=== PATIENT | female | born 1970 | race American Indian/Alaskan Native ===

== ENCOUNTER 2016-06-03 07:16 | Day surgery (SDC) | payer OTHER ==
[2016-06-03 07:42] VITALS: BMI 23.3
[2016-06-03 08:16] VITALS: O2SAT 100
[2016-06-03] MEDS ORDERED: Lidocaine Hydrochloride 5 ML INJ ONE (08:52)
[2016-06-03] MEDS ORDERED: Propofol 10 mg/ml Inj (20 ML) ONE ×2 (08:52→09:02)
--- NOTE | 2016-06-03 08:56 | CP.SDSHP ---
Same Day Surgery H & P - History Proposed Procedure: COLONSCOPY Pre-Op Diagnosis: COLON CA. - Previous Medical/Surgical History Cardiac: Hypertension Pulmonary: Asthma Neuro: Backaches Misc: Other Pain: 4.Moderate Pain Previous Surgical History: PARTIAL COLECTOMY / HAS COLOSTOMY - Allergies Allergies: Allergies No Known Allergies Allergy (Verified 11/21/14 07:47) - Physical Exam General Appearance: N Vital Signs: Vital Signs 06/03/16 07:47 Temperature 97.7 F Pulse Rate 68 Respiratory 19 Rate Blood Pressure 130/86 O2 Sat by Pulse 100 Oximetry Mental Status: Alert & Oriented x3 Neuro: WNL Heart: Other Lungs: Other GI: Other - {Optional Preform as Required} Breast: WNL Abdomen: Other Rectal: Other Integument: WNL : WNL Ortho: Other ENT: WNL - Impression Pt. Evaluated Today:Candidate for Anesthesia & Procedure: Yes - Date & Time Time: 08:56 Short Stay Discharge - Short Stay Discharge Admitting Diagnosis/Reason for Visit: COLON POLYP Disposition: HOME/ ROUTINE
[2016-06-03] MEDS ORDERED: Belladonna-Phenobarbital PO STA (09:01)
[2016-06-03 13:26] VITALS: TEMP 97.1
[2016-06-03 13:34] VITALS: BP 136/86; PULSE 61; RESP 15
== END 2016-06-03 10:45 | disposition home or self-care (01) ==
LOC: C.ENDO 07:16
PROVIDERS: ATTEND Specialist
DX: K63.89 Other specified diseases of intestine (principal); K58.9 Irritable bowel syndrome, unspecified; Z85.038 Personal history of other malignant neoplasm of large intestine; Z86.010 Personal history of colon polyps; Z90.49 Acquired absence of other specified parts of digestive tract; Z93.3 Colostomy status
CPT/HCPCS: 44389; 84703; 88305; J2704

== ENCOUNTER 2016-08-12 06:14 | Day surgery (SDC) | payer OTHER ==
[2016-08-12 06:42] VITALS: BMI 24.0
[2016-08-12] MEDS ORDERED: Albuterol HFA 90 mcg/actuation (8 g) ONE (07:40)
[2016-08-12] MEDS ORDERED: Propofol 10 mg/ml Inj (20 ML) ONE (07:45)
[2016-08-12] MEDS ORDERED: Lactated Ringer's 500 ML IV ONE ×2 (08:10)
--- NOTE | 2016-08-12 08:11 | CP.SDSHP ---
Same Day Surgery H & P - History Proposed Procedure: EGD Pre-Op Diagnosis: SEE NOTES - Previous Medical/Surgical History Cardiac: Hypertension Pulmonary: Asthma Neuro: Backaches Misc: Other - Allergies Allergies: Allergies No Known Allergies Allergy (Verified 11/21/14 07:47) - Physical Exam General Appearance: N Vital Signs: Vital Signs 08/12/16 06:42 Temperature 97.8 F Pulse Rate 70 Respiratory 19 Rate Blood Pressure 138/80 O2 Sat by Pulse 99 Oximetry Neuro: WNL Heart: Other Lungs: Other GI: Other - {Optional Preform as Required} Breast: WNL Abdomen: Other Rectal: Other Integument: WNL : WNL Ortho: Other ENT: WNL - Impression Pt. Evaluated Today:Candidate for Anesthesia & Procedure: Yes - Date & Time Time: 08:11 Short Stay Discharge - Short Stay Discharge Admitting Diagnosis/Reason for Visit: DYSPEPSIA Disposition: HOME/ ROUTINE
[2016-08-12] MEDS ORDERED: Belladonna-Phenobarbital PO STA (08:12)
[2016-08-12] MEDS ORDERED: Pantoprazole 40 mg EC Tab PO STA (08:13)
[2016-08-12 08:33] VITALS: TEMP 98
[2016-08-12 09:39] VITALS: BP 145/79; PULSE 75; RESP 12; O2SAT 99
== END 2016-08-12 09:38 | disposition home or self-care (01) ==
LOC: C.ENDO 06:14
PROVIDERS: ATTEND Specialist
DX: K25.9 Gastric ulcer, unspecified as acute or chronic, without hemorrhage or perforation (principal); K30 Functional dyspepsia; K29.00 Acute gastritis without bleeding; K29.80 Duodenitis without bleeding; I10 Essential (primary) hypertension; J45.909 Unspecified asthma, uncomplicated
CPT/HCPCS: 43239; 84703; 88305; 88342; J2001; J2704; J7120

== ENCOUNTER 2017-01-31 20:23 | Inpatient (IN) | payer OTHER ==
[2017-01-31 20:24] VITALS: BMI 24.0
[2017-01-31 20:58] LABS: BASO # 0.1 K/uL (0.0-0.2); EOS # 0.1 K/uL (0.0-0.7); LYMPH # 2.1 K/uL (1.0-4.3); MEAN CORPUSCULAR HEMOGLOBIN 16.8 pg (27.0-31.0); MONO # 0.5 K/uL (0.0-0.8)
[2017-01-31 21:13] LABS: ALKALINE PHOSPHATASE 92 U/L (38-126); ALT/SGPT 38 U/L (9-52); AST/SGOT 18 U/L (14-36); BILIRUBIN,TOTAL 0.4 mg/dL (0.2-1.3); BLOOD UREA NITROGEN 9 mg/dL (7-17); CALCIUM 8.1 mg/dl (8.6-10.4); CARBON DIOXIDE 27 mmol/L (22-30); CHLORIDE 105 mmol/L (98-107); GFR AFRICAN-AMERICAN > 60; GLUCOSE,RANDOM 91 mg/dL (65-105); POTASSIUM 3.6 mmol/L (3.6-5.2); SODIUM 138 mmol/L (132-148); TOTAL PROTEIN 8.9 g/dL (6.3-8.3)
--- NOTE | 2017-01-31 21:13 | C.PDOC ---
History Of Present Illness 46 year old female is referred to the ED by her PMD Dr. Cornejo for evaluation of abnormal lab results, patient is also c/o a headache. Patient was supposed to come in yesterday, she reports taking Ibuprofen 1600 mg once last night and has not taking anything today. Patient denies fever, chills, nausea, vomit, diarrhea, abdominal pain, back pain, blurry vision, numbness, weakness. heavy menstrual periods with many large clots and "always bleeding/spotting all month." Time Seen by Provider: 01/31/17 20:41 Chief Complaint (Nursing): Headache History Per: Patient History/Exam Limitations: no limitations Onset/Duration Of Symptoms: Hrs Current Symptoms Are (Timing): Still Present Quality: "Pain" Preceeding Symptoms: None Recent travel outside of the [place]: No Additional History Per: Patient Past Medical History Reviewed: Historical Data, Nursing Documentation, Vital Signs Vital Signs: Last Vital Signs Temp 98.1 F 01/31/17 23:51 Pulse 60 01/31/17 23:51 Resp 16 01/31/17 23:51 BP 173/88 H 01/31/17 23:51 Pulse Ox 100 01/31/17 23:51 - Medical History PMH: Anemia, Anxiety, Asthma, Colonic Polyps, Depression, HTN, Hypercholesterolemia, Migraine Denies: Atrial Fibrillation, Bronchitis, Cardia Arrhythmia, CHF, COPD, Emphysema, Mitral Valve Prolapse, Peripheral Edema, Pneumonia, Pulmonary Embolism, Chronic Kidney Disease, Sleep Apnea Other PMH: fibroid uterus Surgical History: Endoscopy - [facility] Procedures BYPASS SIGMOID COLON TO CUTANEOUS, OPEN APPROACH (01/15/15) EXCISION OF RECTUM, ENDO, DIAGN (11/23/14) EXCISION OF RECTUM, VIA NATURAL OR ARTIFICIAL OPENING (11/23/14) EXCISION OF SIGMOID COLON, OPEN APPROACH (01/15/15) RESECTION OF APPENDIX, OPEN APPROACH (01/15/15) RESECTION OF RECTUM, OPEN APPROACH (01/15/15) Family History: States: Unknown Family Hx - Social History Hx Alcohol Use: No Hx Substance Use: No Review Of Systems Constitutional: Negative for: Fever, Chills Cardiovascular: Negative for: Chest Pain, Palpitations Respiratory: Negative for: Cough, Shortness of Breath Gastrointestinal: Negative for: Nausea, Vomiting, Abdominal Pain Genitourinary: Positive for: Other (DUB presumed related to uterine fibroids) Musculoskeletal: Negative for: Back Pain Skin: Negative for: Rash Neurological: Positive for: Headache. Negative for: Weakness, Numbness Physical Exam - Physical Exam Appears: Non-toxic, No Acute Distress, Other (Black female) Skin: Warm, Dry, Pale Head: Atraumatic, Normacephalic Nose: No Discharge, No Deformity Oral Mucosa: Moist Neck: Normal ROM, Supple Chest: Symmetrical Cardiovascular: Rhythm Regular, No Murmur Respiratory: Normal Breath Sounds, No Rales, No Rhonchi, No Wheezing Gastrointestinal/Abdominal: Soft, No Tenderness, No Distention, No Rebound Extremity: Normal ROM, No Pedal Edema, No Calf Tenderness, No Deformity, No Swelling Neurological/Psych: Oriented x3, Normal Speech, Normal Cognition Gait: Steady ED Course And Treatment - Laboratory Results Result Diagrams: 01/31/17 20:55 01/31/17 20:55 Lab Interpretation: Abnormal (significant anemia from hgb 9.4) Urine POC: Negative ECG: Interpreted By Me, Viewed By Me ECG Rhythm: Sinus Rhythm ECG Interpretation: Normal Rate From EC O2 Sat by Pulse Oximetry: 100 (On RA) Pulse Ox Interpretation: Normal - Radiology CXR: Interpreted by Me CXR Interpretation: Yes: No Acute Disease Progress Note: tylenol, Tramadol PO, protonix 40 IV. risk/benefits of blood tx overnight explained and written consent acquired Reevaluation Time: 22:44 Reassessment Condition: Improved - Physician Consult Information Outcome Of Conversation: 2199, 2229: calls to Dr. Hansen who referred pt to ED, corroborates sent pt to ED for outpatient labs sig for anemia. Requests blood tx overnight, but pt declines at this time. Plans to transfuse tomorrow after d /w pt and plan scope on day 2/Thursday. 2229: d/w Dr. Alaniz- had admitted pt to admit and transfusions overnight Medical Decision Making Medical Decision Making: Plan: * EKG * CXR * Blood work * Tylenol 975 mg PO symptomatic anemia, probably GI loss taking Motrin 1600 mg for headache pain- educated to never take more than 600 mg Q6H non-compliant with iron supplements due to constipation, though seems pt's constipation more have been related to post-op chronic narcotics use than iron. Blood Transfusion for syptomatic anemia ordered, but pt prefers to defer and d/ w PMD/Dr. Hansen and defers blood tx for now. EDI ARCHITECT: DUB and uterine fibroids, pt had requested hysterectomy but deferred for ? reasons. Consider re-eval with EDI ARCHITECT Dr Hansen to eval in AM. Disposition Doctor Will See Patient In The: Hospital Counseled Patient/Family Regarding: Studies Performed, Diagnosis - Disposition Disposition: HOSPITALIZED Disposition Time: 22:46 Condition: GOOD - Clinical Impression Clinical Impression: Anemia, Colostomy in place, DUB (dysfunctional uterine bleeding) - Scribe Statement The provider has reviewed the documentation as recorded by the Scribe Claudy Ledbetter All medical record entries made by the Scribe were at my direction and personally dictated by me. I have reviewed the chart and agree that the record accurately reflects my personal performance of the history, physical exam, medical decision making, and the department course for this patient. I have also personally directed, reviewed, and agree with the discharge instructions and disposition.
[2017-01-31 21:15] LABS: RBC URINE 9 /hpf (0-3); URINE BACTERIA OCC (<OCC); URINE BILIRUBIN NEGATIVE (NEGATIVE); URINE BLOOD NEGATIVE (NEGATIVE); URINE COLOR Yellow (YELLOW); URINE GLUCOSE (UA) NORMAL (Normal); URINE KETONE NEGATIVE (NEGATIVE); URINE LEUKOCYTE ESTERASE 3+ Leu/uL (Negative); URINE PROTEIN 1+ mg/dL (NEGATIVE); URINE UROBILINOGEN NORMAL mg/dL (0.2-1.0); WBC URINE 19 /hpf (0-5)
[2017-01-31 21:19] LABS: BASO % 1.2 % (0.0-2.0); EOS % 0.9 % (0.0-4.0); HEMATOCRIT 23.7 % (34.0-47.0); LYMPH % 34.5 % (20.0-40.0); MEAN CELL VOLUME 58.9 fL (81.0-99.0); MEAN CORPUSCULAR HGB CONC 28.5 g/dL (33.0-37.0); MEAN PLATELET VOLUME 8.9 fL (7.2-11.7); MONO % 7.6 % (0.0-10.0); NRBC % 0.1 % (0.0-2.0); RED CELL DISTRIBUTION WIDTH 21.9 % (11.5-14.5); WHITE BLOOD COUNT 6.1 K/uL (4.8-10.8)
[2017-01-31 21:27] LABS: ALB/GLOB RATIO 0.9 (1.0-2.1)
--- NOTE | 2017-02-01 08:15 | RAD ---
Chest x-ray single frontal view History: Shortness of breath. Comparison: 11/23/2014 Findings: No focal infiltrate or effusion. Heart size within normal limits. Osseous structures are preserved. Impression: No focal infiltrate or effusion.
[2017-02-01 08:56] LABS: HEMATOCRIT 23.1 % (34.0-47.0); MEAN CELL VOLUME 59.7 fL (81.0-99.0); MEAN CORPUSCULAR HEMOGLOBIN 17.2 pg (27.0-31.0); MEAN CORPUSCULAR HGB CONC 28.8 g/dL (33.0-37.0); MEAN PLATELET VOLUME 9.3 fL (7.2-11.7); RED CELL DISTRIBUTION WIDTH 22.2 % (11.5-14.5); WHITE BLOOD COUNT 6.7 K/uL (4.8-10.8)
[2017-02-01] MEDS: Pantoprazole 40 mg EC Tab PO SCH (09:02)
[2017-02-01] MEDS: Albuterol HFA 90 mcg/actuation (8 g) INH SCH (11:00)
[2017-02-01] MEDS: Ferric Sodium Gluconat Complex 125 MG in Sodium Chloride 0.9% 100 ML IVPB SCH (12:27)
[2017-02-01] MEDS ORDERED: Ferric Sodium Gluconat Complex 62.5 mg/5 ml Vial IVPB SCH (13:00)
--- NOTE | 2017-02-02 07:35 | CON ---
LOCATION: 365, bed ACassidy Allrde was called for GI consultation last night by the ER physician as well as the admitting medical team. The entire case was discussed with the ER physician on 01/31/2017. The patient is seen today for GI consultation on 02/01/2017. HISTORY OF PRESENT ILLNESS: This is a 46 years old female, who was found to have very low hemoglobin and hematocrit level as outpatient done by myself, subsequently and immediately the patient was contacted to go to the emergency room due to her severe anemia as well as her current episode of headache and the abdominal pain, had been taken the ibuprofen and had high dose of ibuprofen everyday almost due to her headache, but no reported active bleeding, no nausea or vomiting at the time of the admission, but recent change of bowel movement habit. The patient denies any chest pain, palpitation or significant shortness of breath. PAST MEDICAL HISTORY: Including but not limited to, 1. Bronchial asthma. 2. Hypertension. 3. Hyperlipidemia. 4. Depression. 5. Peptic ulcer disease. 6. Severe anxiety syndrome. 7. Colon polyps. 8. Colon CA, treated surgically before. 9. Upper and lower endoscopy about 2 years ago. FAMILY HISTORY: Unrelated to specific GI disorder. CURRENT MEDICATIONS: Medication lists were reviewed. SOCIAL HISTORY: Denied any recent history of cigarette smoking or alcohol intake. ALLERGY TO MEDICATION: None as per the patient's statement. LABORATORY DATA: After being admitted to the hospital, initial blood workup showed hemoglobin of 6.8 with hematocrit 27.3 with low indices, highly suggestive of hypochromic macrocytic anemia with platelet count of 553 with low calcium of 8.1 and abnormal urinalysis. The rest of the liver function test appeared to be normal. PHYSICAL EXAMINATION: GENERAL: A 46 years old female. Awake, alert, oriented with a complaint of headache. VITAL SIGNS: Afebrile with pulse of 62, respiratory rate 20 to 22, blood pressure of 140/78. HEENT: Showed pale dry oral mucous membrane. Nonicteric sclerae. LYMPH NODES: No lymphadenitis or lymphadenopathy. LUNGS: Few scattered crepitation with decreased air entry at bases. HEART: Positive S1 and S2. ABDOMEN: Soft. Bowel sounds are present. No mass or organomegaly. No rebound tenderness or guarding. EXTREMITIES: Without significant clubbing, cyanosis or edema. RECTAL: The patient refused. NEUROLOGIC: No reported new neurological deficits, sensory or motor. It has to be mentioned that the patient's colostomy tube is in place without reported evidence of active bleeding, the patient had been on iron supplement on and off before. IMPRESSION: 1. Severe anemia, most likely secondary to chronic disease. Keeping in mind the patient on history of rectal cancer with colon polyps and status post cholecystectomy. 2. To rule out upper versus lower gastrointestinal blood loss. 3. Reported history of but not limited to depression, bronchial asthma, hypertension with hyperlipidemia. 4. Migraine headache by history. SUGGESTION: 1. Agree with your plan. 2. Blood transfusion, the patient refused for now. 3. Hematology/Oncology consult. The patient may need iron infusion. 4. Sectional abdominal and pelvic CAT scan. 5. Cancer markers including CEA and CA125. 6. The patient may need endoscopic evaluation of the GI tract when she is more stable clinically and after correcting anemia. 7. Further recommendation to follow. Wayne Moreau MD
--- NOTE | 2017-02-02 09:24 | CP.PCM.CON ---
Past Patient History - Past Medical History & Family History Past Medical History?: Yes - Past Social History Smoking Status: Never Smoked - CARDIAC Hx Atrial Fibrillation: No Hx Cardia Arrhythmia: No Hx Congestive Heart Failure: No Hx Hypercholesterolemia: Yes Hx Hypertension: Yes Hx Mitral Valve Prolapse: No Hx Peripheral Edema: No - PULMONARY Hx Asthma: Yes Hx Bronchitis: No Hx Chronic Obstructive Pulmonary Disease (COPD): No Hx Emphysema: No Hx Pneumonia: No Hx Pulmonary Embolism: No Hx Sleep Apnea: No - NEUROLOGICAL Hx Migraine: Yes - HEENT Hx HEENT Problems: No Other/Comment: wears reading glass - RENAL Hx Chronic Kidney Disease: No - ENDOCRINE/METABOLIC Hx Endocrine Disorders: No - HEMATOLOGICAL/ONCOLOGICAL Hx Anemia: Yes Hx Blood Transfusions: No - INTEGUMENTARY Hx Dermatological Problems: No - MUSCULOSKELETAL/RHEUMATOLOGICAL Hx Musculoskeletal Disorders: Yes Hx Falls: No Other/Comment: intermittent muscle pain - GASTROINTESTINAL Hx Gastrointestinal Disorders: Yes Hx Colostomy: Yes (2014) Hx Gastroesophageal Reflux: Yes Other/Comment: Hx colon CA - PSYCHIATRIC Hx Anxiety: Yes Hx Depression: Yes Hx Substance Use: No - SURGICAL HISTORY Hx Surgeries: Yes Other/Comment: colon resection - ANESTHESIA Hx Anesthesia: Yes Hx Anesthesia Reactions: No Hx Malignant Hyperthermia: No Meds Allergies/Adverse Reactions: Allergies Allergy/AdvReac Type Severity Reaction Status Date / Time No Known Allergies Allergy Verified 11/21/14 07:47 - Medications Medications: Current Medications Acetaminophen (Tylenol 325mg Tab) 650 mg PO Q6 PRN PRN Reason: MILD pain 1-3 /fever Last Admin: 02/01/17 21:23 Dose: 650 mg Albuterol (Ventolin Hfa 90 Mcg/Actuation (8 G)) 1 puff INH DAILY [facility] Last Admin: 02/01/17 11:00 Dose: 1 puff Alprazolam (Xanax) 0.5 mg PO DAILY PRN PRN Reason: Anxiety Amlodipine Besylate (Norvasc) 5 mg PO DAILY [facility] Last Admin: 02/01/17 09:04 Dose: 5 mg Ferric Sodium Gluconate Complex 125 mg/ Sodium Chloride 110 mls @ 110 mls/hr IVPB DAILY [facility] Stop: 02/09/17 13:01 Last Admin: 02/01/17 12:27 Dose: 110 mls/hr Metoclopramide HCl (Reglan) 5 mg PO Q6H PRN PRN Reason: Nausea/Vomiting Pantoprazole Sodium (Protonix Ec Tab) 40 mg PO DAILY [facility] Last Admin: 02/01/17 09:02 Dose: 40 mg Pneumococcal Polyvalent Vaccine (Pneumovax 23 Vaccine) 0.5 ml IM .ONCE ONE Stop: 02/03/17 10:01 Sucralfate (Carafate Tab) 1 gm PO DAILY [facility] Last Admin: 02/01/17 09:02 Dose: 1 gm Sumatriptan Succinate (Imitrex Tab) 100 mg PO DAILY [facility] Last Admin: 02/01/17 09:02 Dose: 100 mg Tramadol HCl (Ultram) 50 mg PO DAILY PRN PRN Reason: Pain, moderate (4-7) Last Admin: 02/01/17 13:12 Dose: 50 mg Results - Vital Signs Recent Vital Signs: Last Vital Signs Temp 98.1 F 02/02/17 09:04 Pulse 64 02/02/17 09:04 Resp 20 02/02/17 09:04 BP 135/67 02/02/17 09:04 Pulse Ox 100 02/02/17 09:04 - Labs Result Diagrams: 02/01/17 08:47 01/31/17 20:55
[2017-02-02] MEDS: Pantoprazole 40 mg EC Tab PO SCH (10:02)
[2017-02-02] MEDS: Ferric Sodium Gluconat Complex 125 MG in Sodium Chloride 0.9% 100 ML IVPB SCH (10:02)
[2017-02-02] MEDS: Albuterol HFA 90 mcg/actuation (8 g) INH SCH (10:10)
--- NOTE | 2017-02-02 10:48 | CP.PCM.PN ---
Subjective - Date & Time of Evaluation Date of Evaluation: 02/02/17 Time of Evaluation: 10:00 - Subjective Subjective: PGY-[address] Baron Patient seen and examined at bedside. Patient continue to complain of headache and dizziness. Her abdominal pain has resolved. Patient was educated on benefits and risks of blood transfusion but patient still refused due to fear of "infections". Patient denies fever, chills, shortness of breath, chest pain, diarrhea, or urinary symptoms. Objective - Vital Signs/Intake and Output Vital Signs (last 24 hours): Temp Pulse Resp BP Pulse Ox 98.1 F 64 20 135/67 100 02/02/17 09:04 02/02/17 09:04 02/02/17 09:04 02/02/17 09:04 02/02/17 09:04 - Medications Medications: Current Medications Acetaminophen (Tylenol 325mg Tab) 650 mg PO Q6 PRN PRN Reason: MILD pain 1-3 /fever Last Admin: 02/01/17 21:23 Dose: 650 mg Albuterol (Ventolin Hfa 90 Mcg/Actuation (8 G)) 1 puff INH DAILY [facility] Last Admin: 02/02/17 10:10 Dose: 1 puff Alprazolam (Xanax) 0.5 mg PO DAILY PRN PRN Reason: Anxiety Amlodipine Besylate (Norvasc) 5 mg PO DAILY [facility] Last Admin: 02/02/17 10:02 Dose: 5 mg Ferric Sodium Gluconate Complex 125 mg/ Sodium Chloride 110 mls @ 110 mls/hr IVPB DAILY [facility] Stop: 02/09/17 13:01 Last Admin: 02/02/17 10:02 Dose: 110 mls/hr Metoclopramide HCl (Reglan) 5 mg PO Q6H PRN PRN Reason: Nausea/Vomiting Pantoprazole Sodium (Protonix Ec Tab) 40 mg PO DAILY [facility] Last Admin: 02/02/17 10:02 Dose: 40 mg Pneumococcal Polyvalent Vaccine (Pneumovax 23 Vaccine) 0.5 ml IM .ONCE ONE Stop: 02/03/17 10:01 Sucralfate (Carafate Tab) 1 gm PO DAILY [facility] Last Admin: 02/02/17 10:08 Dose: 1 gm Sumatriptan Succinate (Imitrex Tab) 100 mg PO DAILY [facility] Last Admin: 02/02/17 09:56 Dose: 100 mg Tramadol HCl (Ultram) 50 mg PO DAILY PRN PRN Reason: Pain, moderate (4-7) Last Admin: 02/02/17 10:06 Dose: 50 mg - Labs Labs: 02/01/17 08:47 01/31/17 20:55 PT 11.9 SECONDS (9.7-12.2) 01/31/17 20:55 INR 1.0 01/31/17 20:55 APTT 32 SECONDS (21-34) 01/31/17 20:55 - Constitutional Appears: Non-toxic, No Acute Distress - Head Exam Head Exam: ATRAUMATIC, NORMOCEPHALIC - Eye Exam Eye Exam: Normal appearance - ENT Exam ENT Exam: Mucous Membranes Moist - Neck Exam Neck Exam: Normal Inspection - Respiratory Exam Respiratory Exam: Clear to Ausculation Bilateral, NORMAL BREATHING PATTERN. absent: Respiratory Distress - Cardiovascular Exam Cardiovascular Exam: REGULAR RHYTHM, +S1, +S2 - GI/Abdominal Exam GI & Abdominal Exam: Soft, Normal Bowel Sounds. absent: Tenderness Additional comments: Colostomy bag in place, clean, no leaks appreciated - Extremities Exam Extremities Exam: Normal Capillary Refill, Normal Inspection. absent: Joint Swelling, Pedal Edema - Neurological Exam Neurological Exam: Alert, Awake, Oriented x3 - Psychiatric Exam Psychiatric exam: Normal Affect, Normal Mood - Skin Skin Exam: Dry, Warm Assessment and Plan - Assessment and Plan (Free Text) Assessment: Anemia -Improving, Hgb 7.3 today -Patient still refuses blood transfusion due to fear of infections -Continue Ferrlecit -continue to monitor CBC -Follow GI recommendations: possible endoscopy when patient is stable -Follow Heme/Onc recommendations Headache -Likely secondary to anemia -Sumatriptan 100mg po -Tramadol 50mg po prn Asthma -Albuterol HFA Prophylactic measures -SCD -Protonix Management per Dr. Baron
--- NOTE | 2017-02-02 10:51 | HP ---
HISTORY OF PRESENT ILLNESS: A 46-year-old female admitted to the hospital with chief complaint of weakness, fatigue, tiredness and some discomfort. Patient has a history of CA of the colon. Patient came and advised admission. PHYSICAL EXAMINATION: GENERAL: Patient is awake, alert, oriented. VITAL SIGNS: Temperature 98, pulse . HEENT: Within normal limits. NECK: Supple. CHEST: Symmetrical. HEART: Regular. ABDOMEN: Soft. EXTREMITIES: No edema. IMPRESSION AND PLAN: anemia symptomatic at this point. The patient needs bedrest infusion of IV iron, GI evaluation. Daniel Baron MD
[2017-02-02] MEDS ORDERED: Peg-Electrolyte Oral Soln 4L (Golytely) PO ONE (14:00)
[2017-02-02 14:39] LABS: BASO # 0.1 K/uL (0.0-0.2); BASO % 1.3 % (0.0-2.0); EOS % 0.3 % (0.0-4.0); HEMATOCRIT 25.2 % (34.0-47.0); LYMPH # 1.7 K/uL (1.0-4.3); MEAN CELL VOLUME 59.2 fL (81.0-99.0); MEAN CORPUSCULAR HEMOGLOBIN 17.1 pg (27.0-31.0); MEAN CORPUSCULAR HGB CONC 28.9 g/dL (33.0-37.0); MEAN PLATELET VOLUME 9.4 fL (7.2-11.7); MONO # 0.5 K/uL (0.0-0.8); MONO % 6.4 % (0.0-10.0); NRBC % 0.1 % (0.0-2.0); RED CELL DISTRIBUTION WIDTH 21.6 % (11.5-14.5); WHITE BLOOD COUNT 7.2 K/uL (4.8-10.8)
[2017-02-02 15:02] LABS: BLOOD UREA NITROGEN 4 mg/dL (7-17); CALCIUM 8.6 mg/dl (8.6-10.4); CARBON DIOXIDE 30 mmol/L (22-30); CHLORIDE 102 mmol/L (98-107); GFR AFRICAN-AMERICAN > 60; GLUCOSE,RANDOM 84 mg/dL (65-105); POTASSIUM 3.7 mmol/L (3.6-5.2); SODIUM 139 mmol/L (132-148)
--- NOTE | 2017-02-02 15:31 | PN ---
DATE: LOCATION: 365, bed A. SUBJECTIVE: This is a 46 years old female seen early in rounds today without significant clinical changes or reported active bleeding but with generalized weakness and malaise with a complaint of mild dizziness and headache. It has to be mentioned again the patient has been refusing blood transfusion but agreed for iron IV supplement. This was discussed at length this morning with Dr. Baron. The entire chart is reviewed including but not limited to the most recent lab and radiology study results, current and the previous medication list, current and previous medical events. Most recent lab results showed hemoglobin again of 6.6 with hematocrit 23.1 with low indices highly suggestive of hypochromic microcytic anemia with thrombocytosis of 514. PHYSICAL EXAMINATION: GENERAL: A 46 years old female. VITAL SIGNS: Afebrile with pulse of 68, respiratory rate 20 to 22, and blood pressure 132/62. HEENT: Showed mildly pale, dry oral mucous membranes. Nonicteric sclerae. LUNGS: Few scattered crepitation, decreased air entry at bases. HEART: Positive S1 and S2. ABDOMEN: Soft, bowel sounds are present. Colostomy tube is in place without any reported active bleeding. EXTREMITIES: Without significant clubbing, cyanosis, or edema. NEUROLOGIC: No reported new neurological deficits, sensory or motor. IMPRESSION: 1. Known history of rectal cancer with status post colostomy. 2. Hypochromic microcytic anemia, to rule out recurrent cancer of the colon, to rule out gastrointestinal blood loss. 3. Severe anemia, most likely secondary to above. 4. Headache, most likely secondary to above. 5. Known history of bronchial asthma. SUGGESTION: 1. Agree with your plan. 2. Schedule the patient for followup colonoscopy at a.m. after adequate preparation. Wayne Moreau MD
[2017-02-02] MEDS ORDERED: Bisacodyl 5mg EC Tab PO ONE (17:00)
--- NOTE | 2017-02-02 23:57 | CP.PCM.CON ---
History of Present Illness - History of Present Illness History of Present Illness: 46 year old female with a history of colorectal cancer s/p resection in 2014 ( pT1 N0), chronic iron deficiency anemia secondary to menorrhagia, admitted with symptomatic anemia. The patient reports to feeling weak and tired. She had blood work done which showed a low hgb and was referred to the hospital. In the hospital her hgb was found to be 6.8. She was offered a transfusion but deferred this. She is currently receiving IV iron and notes to feeling better. Past medical history: colorectal cancer, menorrhagia, iron deficiency Past surgical history: APR Family history: Denies hematologic and oncologic problems Social history: Denies tobacco, alcohol, and illicit drug use. Allergies: NKA Review of systems: All remaining review of systems including HEENT, cardiovascular, respiratory, gastrointestinal, genitourinary, musculoskeletal, dermatologic, neurologic, and psychiatric are negative unless mentioned in the HPI. Past Patient History - Past Medical History & Family History Past Medical History?: Yes - Past Social History Smoking Status: Never Smoked - CARDIAC Hx Atrial Fibrillation: No Hx Cardia Arrhythmia: No Hx Congestive Heart Failure: No Hx Hypercholesterolemia: Yes Hx Hypertension: Yes Hx Mitral Valve Prolapse: No Hx Peripheral Edema: No - PULMONARY Hx Asthma: Yes Hx Bronchitis: No Hx Chronic Obstructive Pulmonary Disease (COPD): No Hx Emphysema: No Hx Pneumonia: No Hx Pulmonary Embolism: No Hx Sleep Apnea: No - NEUROLOGICAL Hx Migraine: Yes - HEENT Hx HEENT Problems: No Other/Comment: wears reading glass - RENAL Hx Chronic Kidney Disease: No - ENDOCRINE/METABOLIC Hx Endocrine Disorders: No - HEMATOLOGICAL/ONCOLOGICAL Hx Anemia: Yes Hx Blood Transfusions: No - INTEGUMENTARY Hx Dermatological Problems: No - MUSCULOSKELETAL/RHEUMATOLOGICAL Hx Musculoskeletal Disorders: Yes Hx Falls: No Other/Comment: intermittent muscle pain - GASTROINTESTINAL Hx Gastrointestinal Disorders: Yes Hx Colostomy: Yes (2014) Hx Gastroesophageal Reflux: Yes Other/Comment: Hx colon CA - PSYCHIATRIC Hx Anxiety: Yes Hx Depression: Yes Hx Substance Use: No - SURGICAL HISTORY Hx Surgeries: Yes Other/Comment: colon resection - ANESTHESIA Hx Anesthesia: Yes Hx Anesthesia Reactions: No Hx Malignant Hyperthermia: No Meds Allergies/Adverse Reactions: Allergies Allergy/AdvReac Type Severity Reaction Status Date / Time No Known Allergies Allergy Verified 11/21/14 07:47 - Medications Medications: Current Medications Acetaminophen (Tylenol 325mg Tab) 650 mg PO Q6 PRN PRN Reason: MILD pain 1-3 /fever Last Admin: 02/01/17 21:23 Dose: 650 mg Albuterol (Ventolin Hfa 90 Mcg/Actuation (8 G)) 1 puff INH DAILY [facility] Last Admin: 02/02/17 10:10 Dose: 1 puff Alprazolam (Xanax) 0.5 mg PO DAILY PRN PRN Reason: Anxiety Amlodipine Besylate (Norvasc) 5 mg PO DAILY [facility] Last Admin: 02/02/17 10:02 Dose: 5 mg Ferric Sodium Gluconate Complex 125 mg/ Sodium Chloride 110 mls @ 110 mls/hr IVPB DAILY [facility] Stop: 02/09/17 13:01 Last Admin: 02/02/17 10:02 Dose: 110 mls/hr Metoclopramide HCl (Reglan) 5 mg PO Q6H PRN PRN Reason: Nausea/Vomiting Metoclopramide HCl (Reglan) 5 mg IVP Q6 [facility] Last Admin: 02/02/17 17:07 Dose: 5 mg Pantoprazole Sodium (Protonix Ec Tab) 40 mg PO DAILY [facility] Last Admin: 02/02/17 10:02 Dose: 40 mg Pneumococcal Polyvalent Vaccine (Pneumovax 23 Vaccine) 0.5 ml IM .ONCE ONE Stop: 02/03/17 10:01 Sucralfate (Carafate Tab) 1 gm PO DAILY [facility] Last Admin: 02/02/17 10:08 Dose: 1 gm Sumatriptan Succinate (Imitrex Tab) 100 mg PO DAILY [facility] Last Admin: 02/02/17 09:56 Dose: 100 mg Tramadol HCl (Ultram) 50 mg PO DAILY PRN PRN Reason: Pain, moderate (4-7) Last Admin: 02/02/17 10:06 Dose: 50 mg Physical Exam - Head Exam Head Exam: ATRAUMATIC - Eye Exam Eye Exam: Normal appearance - ENT Exam ENT Exam: Mucous Membranes Dry - Respiratory Exam Respiratory Exam: NORMAL BREATHING PATTERN - Cardiovascular Exam Cardiovascular Exam: +S1, +S2 - GI/Abdominal Exam GI & Abdominal Exam: Normal Bowel Sounds - Extremities Exam Extremities exam: Positive for: normal inspection - Neurological Exam Neurological exam: Oriented x3 - Psychiatric Exam Psychiatric exam: Normal Affect, Normal Mood - Skin Skin Exam: Warm Results - Vital Signs Recent Vital Signs: Last Vital Signs Temp 98.3 F 02/02/17 14:00 Pulse 67 02/02/17 14:00 Resp 20 02/02/17 14:00 BP 137/88 02/02/17 14:00 Pulse Ox 99 02/02/17 14:00 - Labs Result Diagrams: 02/02/17 14:29 02/02/17 14:29 Labs: Laboratory Results - last 24 hr 02/02/17 02/02/17 14:29 14:29 WBC 7.2 RBC 4.25 Hgb 7.3 L Hct 25.2 L MCV 59.2 L MCH 17.1 L MCHC 28.9 L RDW 21.6 H Plt Count 570 H MPV 9.4 Neut % (Auto) 68.0 Lymph % (Auto) 24.0 [place] % (Auto) 6.4 Eos % (Auto) 0.3 Baso % (Auto) 1.3 Neut # 4.9 Lymph # 1.7 [place] # 0.5 Eos # 0.0 Baso # 0.1 Sodium 139 Potassium 3.7 Chloride 102 Carbon Dioxide 30 Anion Gap 11 BUN 4 L Creatinine 0.7 Est GFR ( Amer) > 60 Est GFR (Non-Af Amer) > 60 Random Glucose 84 Calcium 8.6 Assessment & Plan (1) Anemia Assessment and Plan: likely secondary to menorrhagia recommend GI evaluation given history of colorectal cancer will add CEA deferred PRBC transfusion on IV iron outpatient iron Status: Acute (2) Rectal cancer Assessment and Plan: in remission GI evaluation will add CEA Thank you for this interesting consult. Status: Acute
[2017-02-03 08:41] LABS: BASO # 0.1 K/uL (0.0-0.2); BASO % 1.3 % (0.0-2.0); EOS % 0.4 % (0.0-4.0); HEMATOCRIT 23.1 % (34.0-47.0); LYMPH % 26.3 % (20.0-40.0); MEAN CORPUSCULAR HEMOGLOBIN 17.3 pg (27.0-31.0); MEAN CORPUSCULAR HGB CONC 29.4 g/dL (33.0-37.0); MEAN PLATELET VOLUME 9.1 fL (7.2-11.7); MONO # 0.6 K/uL (0.0-0.8); MONO % 8.3 % (0.0-10.0); NRBC % 0.1 % (0.0-2.0); RED CELL DISTRIBUTION WIDTH 21.3 % (11.5-14.5); RETIC% 2.7 % (0.5-1.5); WHITE BLOOD COUNT 7.6 K/uL (4.8-10.8)
[2017-02-03 09:05] LABS: ALB/GLOB RATIO 0.9 (1.0-2.1); ALKALINE PHOSPHATASE 88 U/L (38-126); ALT/SGPT 27 U/L (9-52); AST/SGOT 19 U/L (14-36); BILIRUBIN,TOTAL 0.4 mg/dL (0.2-1.3); BLOOD UREA NITROGEN 5 mg/dL (7-17); CALCIUM 8.5 mg/dl (8.6-10.4); CARBON DIOXIDE 29 mmol/L (22-30); CHLORIDE 99 mmol/L (98-107); GFR AFRICAN-AMERICAN > 60; GLUCOSE,RANDOM 87 mg/dL (65-105); POTASSIUM 3.3 mmol/L (3.6-5.2); SODIUM 136 mmol/L (132-148); TOTAL PROTEIN 8.5 g/dL (6.3-8.3)
[2017-02-03 09:49] LABS: FOLATE 17.2 ng/mL
[2017-02-03] MEDS ORDERED: Influenza Vaccine 60 mcg/0.5 mL SYR (4YR UP) IM ONE (10:00)
[2017-02-03] MEDS ORDERED: Pneumococcal 23-Valent Vaccine IM ONE (10:00)
[2017-02-03] MEDS: Albuterol HFA 90 mcg/actuation (8 g) INH SCH (10:06)
[2017-02-03] MEDS ORDERED: Propofol 10 mg/ml Inj (20 ML) ONE (10:29)
[2017-02-03] MEDS ORDERED: Lactated Ringer's 500 ML IV SCH (10:45)
[2017-02-03] MEDS: Ferric Sodium Gluconat Complex 125 MG in Sodium Chloride 0.9% 100 ML IVPB SCH ×2 (10:58→11:56)
[2017-02-03] MEDS: Pantoprazole 40 mg EC Tab PO SCH ×2 (10:58→11:58)
[2017-02-03] MEDS ORDERED: Potassium Chloride 20 mEq ER Tab PO ONE (11:14)
[2017-02-03] MEDS ORDERED: Lactated Ringer's 1,000 ML IV SCH (14:53)
--- NOTE | 2017-02-03 14:58 | CP.PCM.PN ---
Subjective - Date & Time of Evaluation Date of Evaluation: 02/03/17 Time of Evaluation: 14:58 - Subjective Subjective: PGY2 medicine progress note for Dr. Baron Patient seen and examined. Patient s/p colonoscopy today and is to have endoscopy tomorrow. Patient reports improvement in abdominal pain and states she was able to tolerate some of her diet post procedure. Patient again expressed concern regarding risk of infection with blood transfusions. Objective - Vital Signs/Intake and Output Vital Signs (last 24 hours): Temp Pulse Resp BP Pulse Ox 98.3 F 66 14 129/77 100 02/03/17 10:56 02/03/17 11:26 02/03/17 11:26 02/03/17 11:26 02/03/17 11:26 Intake and Output: 02/03/17 02/03/17 06:59 18:59 Intake Total 400 Output Total 600 Balance -200 - Medications Medications: Current Medications Acetaminophen (Tylenol 325mg Tab) 650 mg PO Q6 PRN PRN Reason: MILD pain 1-3 /fever Last Admin: 02/01/17 21:23 Dose: 650 mg Albuterol (Ventolin Hfa 90 Mcg/Actuation (8 G)) 1 puff INH DAILY [facility] Last Admin: 02/03/17 10:06 Dose: Not Given Alprazolam (Xanax) 0.5 mg PO DAILY PRN PRN Reason: Anxiety Amlodipine Besylate (Norvasc) 5 mg PO DAILY [facility] Last Admin: 02/03/17 11:57 Dose: 5 mg Ferric Sodium Gluconate Complex 125 mg/ Sodium Chloride 110 mls @ 110 mls/hr IVPB DAILY [facility] Stop: 02/09/17 13:01 Last Admin: 02/03/17 11:56 Dose: 110 mls/hr Lactated Ringer's (Lactated Ringer's 500ml) 500 mls @ 75 mls/hr IV .[id number] [facility] Last Admin: 02/03/17 10:57 Dose: Not Given Metoclopramide HCl (Reglan) 5 mg PO Q6H PRN PRN Reason: Nausea/Vomiting Metoclopramide HCl (Reglan) 5 mg IVP Q6 [facility] Last Admin: 02/03/17 12:00 Dose: 5 mg Pantoprazole Sodium (Protonix Ec Tab) 40 mg PO DAILY [facility] Last Admin: 02/03/17 11:58 Dose: 40 mg Sucralfate (Carafate Tab) 1 gm PO DAILY [facility] Last Admin: 02/03/17 10:56 Dose: Not Given Sumatriptan Succinate (Imitrex Tab) 100 mg PO DAILY [facility] Last Admin: 02/03/17 12:00 Dose: 100 mg Tramadol HCl (Ultram) 50 mg PO DAILY PRN PRN Reason: Pain, moderate (4-7) Last Admin: 02/03/17 06:24 Dose: 50 mg - Labs Labs: 02/03/17 08:27 02/03/17 08:27 PT 11.9 SECONDS (9.7-12.2) 01/31/17 20:55 INR 1.0 01/31/17 20:55 APTT 32 SECONDS (21-34) 01/31/17 20:55 - Constitutional Appears: No Acute Distress - Head Exam Head Exam: ATRAUMATIC, NORMOCEPHALIC - Eye Exam Eye Exam: EOMI - ENT Exam ENT Exam: Mucous Membranes Dry - Respiratory Exam Respiratory Exam: Clear to Ausculation Bilateral - Cardiovascular Exam Cardiovascular Exam: +S1, +S2 - GI/Abdominal Exam GI & Abdominal Exam: Soft, Normal Bowel Sounds. absent: Tenderness - Extremities Exam Extremities Exam: Normal Inspection - Neurological Exam Neurological Exam: Alert, Awake - Psychiatric Exam Psychiatric exam: Normal Affect - Skin Skin Exam: Warm Assessment and Plan - Assessment and Plan (Free Text) Assessment: Anemia -Hgb 6.8 today -Patient still refuses blood transfusion due to fear of infections -Continue Ferrlecit Per Dr. Cortes, patient to have IV iron 3x per week, he will monitor her response to therapy and adjust frequency and duration as needed -continue to monitor CBC - retic index 0.7% with inadequate bone marrow response - ferretin 51.2, low, consistent with iron deficiency - B12 495 -02/03: colonoscopy: diverticulosis noted mid ascending colon, repeat exam in 1 year, mildly congested mucosa, biopsies taken - pt to have endoscopy tomorrow Headache -Likely secondary to anemia -Sumatriptan 100mg po -Tramadol 50mg po prn HTN - continue Norvasc 5mg PO daily Anxiety - continue xanax 0.5mg PO daily prn Asthma -Albuterol HFA Prophylactic measures -SCD -Protonix Management per Dr. Baron
[2017-02-03] MEDS: Lactated Ringer's 1,000 ML IV SCH (15:17)
--- NOTE | 2017-02-03 18:06 | CP.PCM.PN ---
Subjective - Date & Time of Evaluation Date of Evaluation: 02/03/17 Time of Evaluation: 13:00 - Subjective Subjective: No complaints Objective - Vital Signs/Intake and Output Vital Signs (last 24 hours): Temp Pulse Resp BP Pulse Ox 98 F 68 20 138/75 100 02/03/17 16:00 02/03/17 16:00 02/03/17 16:00 02/03/17 16:00 02/03/17 16:00 Intake and Output: 02/03/17 02/03/17 06:59 18:59 Intake Total 1010 Output Total 1100 Balance -90 - Medications Medications: Current Medications Acetaminophen (Tylenol 325mg Tab) 650 mg PO Q6 PRN PRN Reason: MILD pain 1-3 /fever Last Admin: 02/01/17 21:23 Dose: 650 mg Albuterol (Ventolin Hfa 90 Mcg/Actuation (8 G)) 1 puff INH DAILY [facility] Last Admin: 02/03/17 10:06 Dose: Not Given Alprazolam (Xanax) 0.5 mg PO DAILY PRN PRN Reason: Anxiety Amlodipine Besylate (Norvasc) 5 mg PO DAILY [facility] Last Admin: 02/03/17 11:57 Dose: 5 mg Ferric Sodium Gluconate Complex 125 mg/ Sodium Chloride 110 mls @ 110 mls/hr IVPB DAILY [facility] Stop: 02/09/17 13:01 Last Admin: 02/03/17 11:56 Dose: 110 mls/hr Lactated Ringer's (Lactated Ringer's) 1,000 mls @ 75 mls/hr IV .[id number] [facility] Last Admin: 02/03/17 15:17 Dose: 75 mls/hr Metoclopramide HCl (Reglan) 5 mg PO Q6H PRN PRN Reason: Nausea/Vomiting Metoclopramide HCl (Reglan) 5 mg IVP Q6 [facility] Last Admin: 02/03/17 17:14 Dose: 5 mg Pantoprazole Sodium (Protonix Ec Tab) 40 mg PO DAILY [facility] Last Admin: 02/03/17 11:58 Dose: 40 mg Sucralfate (Carafate Tab) 1 gm PO DAILY [facility] Last Admin: 02/03/17 10:56 Dose: Not Given Sumatriptan Succinate (Imitrex Tab) 100 mg PO DAILY [facility] Last Admin: 02/03/17 12:00 Dose: 100 mg Tramadol HCl (Ultram) 50 mg PO DAILY PRN PRN Reason: Pain, moderate (4-7) Last Admin: 02/03/17 06:24 Dose: 50 mg - Labs Labs: 02/03/17 08:27 02/03/17 08:27 PT 11.9 SECONDS (9.7-12.2) 01/31/17 20:55 INR 1.0 01/31/17 20:55 APTT 32 SECONDS (21-34) 01/31/17 20:55 - Head Exam Head Exam: ATRAUMATIC - Eye Exam Eye Exam: Normal appearance - ENT Exam ENT Exam: Mucous Membranes Dry - Respiratory Exam Respiratory Exam: NORMAL BREATHING PATTERN - Cardiovascular Exam Cardiovascular Exam: +S1, +S2 - GI/Abdominal Exam GI & Abdominal Exam: Normal Bowel Sounds - Extremities Exam Extremities Exam: Normal Inspection Assessment and Plan (1) Anemia Assessment & Plan: iron deficiency menorrhagia deferred PRBC transfusion on IV iron GI w/u in progress outpatient IV iron Status: Acute (2) Rectal cancer Assessment & Plan: in remission Status: Acute
[2017-02-04] MEDS: Lactated Ringer's 1,000 ML IV SCH ×2 (04:30→17:27)
[2017-02-04 08:14] LABS: BASO # 0.1 K/uL (0.0-0.2); BASO % 2.1 % (0.0-2.0); EOS # 0.1 K/uL (0.0-0.7); EOS % 0.9 % (0.0-4.0); HEMATOCRIT 21.5 % (34.0-47.0); LYMPH # 2.3 K/uL (1.0-4.3); LYMPH % 35.1 % (20.0-40.0); MEAN CELL VOLUME 59.5 fL (81.0-99.0); MEAN CORPUSCULAR HEMOGLOBIN 18.1 pg (27.0-31.0); MEAN CORPUSCULAR HGB CONC 30.5 g/dL (33.0-37.0); MONO # 0.5 K/uL (0.0-0.8); MONO % 8.3 % (0.0-10.0); NRBC % 0.1 % (0.0-2.0); RED CELL DISTRIBUTION WIDTH 21.2 % (11.5-14.5); WHITE BLOOD COUNT 6.5 K/uL (4.8-10.8)
[2017-02-04 08:44] LABS: ALB/GLOB RATIO 0.9 (1.0-2.1); ALKALINE PHOSPHATASE 76 U/L (38-126); ALT/SGPT 19 U/L (9-52); AST/SGOT 21 U/L (14-36); BILIRUBIN,TOTAL 0.4 mg/dL (0.2-1.3); BLOOD UREA NITROGEN 4 mg/dL (7-17); CALCIUM 8.3 mg/dl (8.6-10.4); CARBON DIOXIDE 28 mmol/L (22-30); CHLORIDE 101 mmol/L (98-107); GFR AFRICAN-AMERICAN > 60; GLUCOSE,RANDOM 82 mg/dL (65-105); POTASSIUM 3.8 mmol/L (3.6-5.2); SODIUM 134 mmol/L (132-148); TOTAL PROTEIN 7.8 g/dL (6.3-8.3)
[2017-02-04] MEDS: Ferric Sodium Gluconat Complex 125 MG in Sodium Chloride 0.9% 100 ML IVPB SCH ×2 (09:30→11:04)
[2017-02-04] MEDS: Pantoprazole 40 mg EC Tab PO SCH (09:31)
[2017-02-04] MEDS ORDERED: Midazolam 2 MG/2 ML VIAL ONE (09:50)
[2017-02-04] MEDS ORDERED: Propofol 10 mg/ml Inj (20 ML) ONE (09:51)
[2017-02-04] MEDS ORDERED: Lactated Ringer's 500 ML IV ONE (09:51)
[2017-02-04] MEDS: Albuterol HFA 90 mcg/actuation (8 g) INH SCH (09:58)
--- NOTE | 2017-02-04 13:14 | CP.PCM.PN ---
Subjective - Date & Time of Evaluation Date of Evaluation: 02/04/17 Time of Evaluation: 12:35 - Subjective Subjective: Feeling better GI w/u in progress Objective - Vital Signs/Intake and Output Vital Signs (last 24 hours): Temp Pulse Resp BP Pulse Ox 97 F L 69 18 125/70 100 02/04/17 10:05 02/04/17 10:35 02/04/17 10:35 02/04/17 10:35 02/04/17 10:35 Intake and Output: 02/04/17 02/04/17 06:59 18:59 Intake Total 600 Balance 600 - Medications Medications: Current Medications Acetaminophen (Tylenol 325mg Tab) 650 mg PO Q6 PRN PRN Reason: MILD pain 1-3 /fever Last Admin: 02/01/17 21:23 Dose: 650 mg Albuterol (Ventolin Hfa 90 Mcg/Actuation (8 G)) 1 puff INH DAILY [facility] Last Admin: 02/04/17 09:58 Dose: Not Given Alprazolam (Xanax) 0.5 mg PO DAILY PRN PRN Reason: Anxiety Amlodipine Besylate (Norvasc) 5 mg PO DAILY [facility] Last Admin: 02/04/17 09:31 Dose: Not Given Ferric Sodium Gluconate Complex 125 mg/ Sodium Chloride 110 mls @ 110 mls/hr IVPB DAILY [facility] Stop: 02/09/17 13:01 Last Admin: 02/04/17 11:04 Dose: 110 mls/hr Lactated Ringer's (Lactated Ringer's) 1,000 mls @ 75 mls/hr IV .[id number] [facility] Last Admin: 02/04/17 04:30 Dose: 75 mls/hr Metoclopramide HCl (Reglan) 5 mg PO Q6H PRN PRN Reason: Nausea/Vomiting Metoclopramide HCl (Reglan) 5 mg IVP Q6 [facility] Last Admin: 02/04/17 11:21 Dose: 5 mg Pantoprazole Sodium (Protonix Ec Tab) 40 mg PO DAILY [facility] Last Admin: 02/04/17 09:31 Dose: Not Given Sucralfate (Carafate Tab) 1 gm PO DAILY [facility] Last Admin: 02/04/17 09:30 Dose: Not Given Sumatriptan Succinate (Imitrex Tab) 100 mg PO DAILY [facility] Last Admin: 02/04/17 09:31 Dose: Not Given Tramadol HCl (Ultram) 50 mg PO DAILY PRN PRN Reason: Pain, moderate (4-7) Last Admin: 02/03/17 06:24 Dose: 50 mg - Labs Labs: 02/04/17 07:54 02/04/17 07:54 PT 11.9 SECONDS (9.7-12.2) 01/31/17 20:55 INR 1.0 01/31/17 20:55 APTT 32 SECONDS (21-34) 01/31/17 20:55 - Head Exam Head Exam: ATRAUMATIC - Eye Exam Eye Exam: Normal appearance - ENT Exam ENT Exam: Mucous Membranes Dry - Respiratory Exam Respiratory Exam: NORMAL BREATHING PATTERN - Cardiovascular Exam Cardiovascular Exam: +S1, +S2 - GI/Abdominal Exam GI & Abdominal Exam: Normal Bowel Sounds - Extremities Exam Extremities Exam: Normal Inspection Assessment and Plan (1) Anemia Assessment & Plan: w/u consistent with iron deficiency likely from menorrhagia GI w/u in progress on IV iron deferred PRBC transfusion minimize blood draws Status: Acute (2) Rectal cancer Assessment & Plan: in remission f/u CEA Status: Acute
--- NOTE | 2017-02-04 13:29 | CP.PCM.PN ---
Subjective - Date & Time of Evaluation Date of Evaluation: 02/04/17 Time of Evaluation: 07:45 - Subjective Subjective: PGY2 medicine progress note for Dr. Baron: Patient seen and examined prior to and after endoscopy. Patient states she is feeling well, but admits to small headache as well as weakness. Discussed option of transfusion, with risks and benefits, while on rounds. Patient agreeable for blood transfusion today. Objective - Vital Signs/Intake and Output Vital Signs (last 24 hours): Temp Pulse Resp BP Pulse Ox 97 F L 69 18 125/70 100 02/04/17 10:05 02/04/17 10:35 02/04/17 10:35 02/04/17 10:35 02/04/17 10:35 Intake and Output: 02/04/17 02/04/17 06:59 18:59 Intake Total 600 Balance 600 - Medications Medications: Current Medications Acetaminophen (Tylenol 325mg Tab) 650 mg PO Q6 PRN PRN Reason: MILD pain 1-3 /fever Last Admin: 02/01/17 21:23 Dose: 650 mg Albuterol (Ventolin Hfa 90 Mcg/Actuation (8 G)) 1 puff INH DAILY [facility] Last Admin: 02/04/17 09:58 Dose: Not Given Alprazolam (Xanax) 0.5 mg PO DAILY PRN PRN Reason: Anxiety Amlodipine Besylate (Norvasc) 5 mg PO DAILY [facility] Last Admin: 02/04/17 09:31 Dose: Not Given Ferric Sodium Gluconate Complex 125 mg/ Sodium Chloride 110 mls @ 110 mls/hr IVPB DAILY [facility] Stop: 02/09/17 13:01 Last Admin: 02/04/17 11:04 Dose: 110 mls/hr Lactated Ringer's (Lactated Ringer's) 1,000 mls @ 75 mls/hr IV .[id number] [facility] Last Admin: 02/04/17 04:30 Dose: 75 mls/hr Metoclopramide HCl (Reglan) 5 mg PO Q6H PRN PRN Reason: Nausea/Vomiting Metoclopramide HCl (Reglan) 5 mg IVP Q6 [facility] Last Admin: 02/04/17 11:21 Dose: 5 mg Pantoprazole Sodium (Protonix Ec Tab) 40 mg PO DAILY [facility] Last Admin: 12/20/17 09:31 Dose: Not Given Sucralfate (Carafate Tab) 1 gm PO DAILY [facility] Last Admin: 02/04/17 09:30 Dose: Not Given Sumatriptan Succinate (Imitrex Tab) 100 mg PO DAILY [facility] Last Admin: 02/04/17 09:31 Dose: Not Given Tramadol HCl (Ultram) 50 mg PO DAILY PRN PRN Reason: Pain, moderate (4-7) Last Admin: 02/03/17 06:24 Dose: 50 mg - Labs Labs: 02/04/17 07:54 02/04/17 07:54 PT 11.9 SECONDS (9.7-12.2) 01/31/17 20:55 INR 1.0 01/31/17 20:55 APTT 32 SECONDS (21-34) 01/31/17 20:55 - Constitutional Appears: No Acute Distress - Head Exam Head Exam: ATRAUMATIC, NORMOCEPHALIC - Eye Exam Eye Exam: EOMI - ENT Exam ENT Exam: Mucous Membranes Moist - Respiratory Exam Respiratory Exam: Clear to Ausculation Bilateral - Cardiovascular Exam Cardiovascular Exam: +S1, +S2 - GI/Abdominal Exam GI & Abdominal Exam: Soft, Normal Bowel Sounds. absent: Tenderness - Extremities Exam Extremities Exam: Normal Inspection - Neurological Exam Neurological Exam: Alert, Awake - Psychiatric Exam Psychiatric exam: Normal Affect - Skin Skin Exam: Warm Assessment and Plan - Assessment and Plan (Free Text) Assessment: Anemia -Hgb 6.6 today -Patient agreed for blood transfusion today- will give 2 units PRBC -Continue Ferrlecit Per Dr. Cortes, patient to have IV iron 3x per week, he will monitor her response to therapy and adjust frequency and duration as needed -continue to monitor CBC - retic index 0.7% with inadequate bone marrow response - ferretin 51.2, low, consistent with iron deficiency - B12 495 -02/03: colonoscopy: diverticulosis noted mid ascending colon, repeat exam in 1 year, mildly congested mucosa, biopsies taken - pt s/p endoscopy today 02/04 Headache -Likely secondary to anemia -Sumatriptan 100mg po -Tramadol 50mg po prn HTN - continue Norvasc 5mg PO daily Anxiety - continue xanax 0.5mg PO daily prn Asthma -Albuterol HFA Prophylactic measures -SCD -Protonix Management per Dr. Baron
[2017-02-05 08:26] LABS: BASO # 0.1 K/uL (0.0-0.2); BASO % 1.3 % (0.0-2.0); EOS # 0.1 K/uL (0.0-0.7); EOS % 0.9 % (0.0-4.0); LYMPH # 2.2 K/uL (1.0-4.3); LYMPH % 24.9 % (20.0-40.0); MEAN CORPUSCULAR HGB CONC 31.6 g/dL (33.0-37.0); MEAN PLATELET VOLUME 9.3 fL (7.2-11.7); MONO # 0.8 K/uL (0.0-0.8); MONO % 8.7 % (0.0-10.0); NRBC % 0.2 % (0.0-2.0); RED CELL DISTRIBUTION WIDTH 28.6 % (11.5-14.5); WHITE BLOOD COUNT 8.8 K/uL (4.8-10.8)
[2017-02-05 08:33] LABS: ALB/GLOB RATIO 0.9 (1.0-2.1); ALKALINE PHOSPHATASE 74 U/L (38-126); ALT/SGPT 14 U/L (9-52); AST/SGOT 22 U/L (14-36); BILIRUBIN,TOTAL 0.5 mg/dL (0.2-1.3); BLOOD UREA NITROGEN 8 mg/dL (7-17); CALCIUM 8.6 mg/dl (8.6-10.4); CARBON DIOXIDE 28 mmol/L (22-30); CHLORIDE 100 mmol/L (98-107); GFR AFRICAN-AMERICAN > 60; GLUCOSE,RANDOM 93 mg/dL (65-105); POTASSIUM 4.3 mmol/L (3.6-5.2); SODIUM 134 mmol/L (132-148); TOTAL PROTEIN 8.1 g/dL (6.3-8.3)
[2017-02-05 08:34] LABS: MEAN CELL VOLUME 66.3 fL (81.0-99.0)
[2017-02-05] MEDS: Pantoprazole 40 mg EC Tab PO SCH (10:03)
[2017-02-05] MEDS: Ferric Sodium Gluconat Complex 125 MG in Sodium Chloride 0.9% 100 ML IVPB SCH (10:04)
[2017-02-05] MEDS: Albuterol HFA 90 mcg/actuation (8 g) INH SCH (10:28)
[2017-02-05 12:53] VITALS: RESP 20
--- NOTE | 2017-02-05 13:26 | PN ---
LOCATION: [facility], bed A. SUBJECTIVE: This is a 46 years old female, seen and examined at rounds post upper and lower endoscopy without any reported active bleeding with intermittent period of mild nausea with dyspepsia. The entire chart is reviewed including but not limited to the most recent lab and radiology study results, current and the previous medication list, current and the previous medical events and the patient's hemoglobin today is 9.8, hematocrit 31.0 with low indices, highly suggestive of hypochromic macrocytic anemia. The patient was receiving iron IV. Case discussed at length with Dr. Cortes. PHYSICAL EXAMINATION: GENERAL: A 46 years old female. VITAL SIGNS: Afebrile with pulse of 92, respiratory rate 20 to 22, blood pressure 130/88. HEENT: Showed pale dry oral mucous membrane. Nonicteric sclerae. LUNGS: Few scattered crepitation. Decreased air entry at bases. HEART: Positive S1 and S2. ABDOMEN: Soft. Bowel sounds are present. No mass or organomegaly. No rebound tenderness or guarding. Colostomy tube is in place. NEUROLOGIC: No reported new neurological deficits, sensory or motor. IMPRESSION: 1. Known history of rectal cancer, status post colostomy. 2. Severe anemia, most likely secondary to above. 3. Peptic ulcer disease. 4. Known history of bronchial asthma. SUGGESTION: 1. Continue current management. 2. The patient will need sectional abdominal and pelvic CAT scan versus PET scan. 3. Further recommendation to follow. Wayne Moreau MD
[2017-02-05 16:21] VITALS: BP 120/75; PULSE 74; TEMP 98; O2SAT 100
--- NOTE | 2017-02-05 16:29 | CP.PCM.PN ---
Subjective - Date & Time of Evaluation Date of Evaluation: 02/05/17 Time of Evaluation: 09:40 - Subjective Subjective: PGY-[address] Baron Patient seen and examined at bedside. Patient completed 2 units of PRBC transfusion overnight. Patient states her headache has improved. Patient asked about elective hysterectomy and was instructed to see her outpatient OBGYN for an evaluation. Patient denies fever, chills, shortness of breath, chest pain, nausea, vomiting, or diarrhea. Objective - Vital Signs/Intake and Output Vital Signs (last 24 hours): Temp Pulse Resp BP Pulse Ox 98.0 F 74 20 120/75 100 02/05/17 15:00 02/05/17 15:00 02/05/17 15:00 02/05/17 15:00 02/05/17 15:00 Intake and Output: 02/05/17 02/05/17 06:59 18:59 Intake Total 1885 1380 Output Total 800 Balance 1885 580 - Medications Medications: Current Medications Acetaminophen (Tylenol 325mg Tab) 650 mg PO Q6 PRN PRN Reason: MILD pain 1-3 /fever Last Admin: 02/01/17 21:23 Dose: 650 mg Albuterol (Ventolin Hfa 90 Mcg/Actuation (8 G)) 1 puff INH DAILY [facility] Last Admin: 02/05/17 10:28 Dose: 1 puff Alprazolam (Xanax) 0.5 mg PO DAILY PRN PRN Reason: Anxiety Amlodipine Besylate (Norvasc) 5 mg PO DAILY [facility] Last Admin: 02/05/17 10:03 Dose: 5 mg Ferric Sodium Gluconate Complex 125 mg/ Sodium Chloride 110 mls @ 110 mls/hr IVPB DAILY [facility] Stop: 02/09/17 13:01 Last Admin: 02/05/17 10:04 Dose: 110 mls/hr Lactated Ringer's (Lactated Ringer's) 1,000 mls @ 75 mls/hr IV .[id number] [facility] Last Admin: 02/04/17 17:27 Dose: Not Given Metoclopramide HCl (Reglan) 5 mg PO Q6H PRN PRN Reason: Nausea/Vomiting Metoclopramide HCl (Reglan) 5 mg IVP Q6 [facility] Last Admin: 02/05/17 12:00 Dose: 5 mg Pantoprazole Sodium (Protonix Ec Tab) 40 mg PO DAILY [facility] Last Admin: 02/05/17 10:03 Dose: 40 mg Sucralfate (Carafate Tab) 1 gm PO DAILY [facility] Last Admin: 02/05/17 10:02 Dose: 1 gm Sumatriptan Succinate (Imitrex Tab) 100 mg PO DAILY [facility] Last Admin: 02/05/17 10:03 Dose: 100 mg Tramadol HCl (Ultram) 50 mg PO DAILY PRN PRN Reason: Pain, moderate (4-7) Last Admin: 02/03/17 06:24 Dose: 50 mg - Labs Labs: 02/05/17 07:53 02/05/17 07:53 PT 11.9 SECONDS (9.7-12.2) 01/31/17 20:55 INR 1.0 01/31/17 20:55 APTT 32 SECONDS (21-34) 01/31/17 20:55 - Constitutional Appears: Non-toxic, No Acute Distress - Head Exam Head Exam: ATRAUMATIC, NORMOCEPHALIC - Eye Exam Eye Exam: Normal appearance - ENT Exam ENT Exam: Mucous Membranes Moist - Neck Exam Neck Exam: Normal Inspection - Respiratory Exam Respiratory Exam: Clear to Ausculation Bilateral, NORMAL BREATHING PATTERN. absent: Respiratory Distress - Cardiovascular Exam Cardiovascular Exam: REGULAR RHYTHM, +S1, +S2. absent: Murmur - GI/Abdominal Exam GI & Abdominal Exam: Soft, Normal Bowel Sounds. absent: Tenderness - Extremities Exam Extremities Exam: Normal Inspection. absent: Pedal Edema, Tenderness Additional comments: Right anticubital fossa midline in place - Neurological Exam Neurological Exam: Alert, Awake, Oriented x3 - Psychiatric Exam Psychiatric exam: Normal Affect, Normal Mood - Skin Skin Exam: Dry, Normal Color, Warm Assessment and Plan - Assessment and Plan (Free Text) Assessment: Anemia -S/P 2 units PRBC transfusion -Hgb 9.8 today -Per Dr. Cortes, patient maybe discharged on oral ferrous sulfate and follow up as outpatient -02/03: colonoscopy: diverticulosis noted mid ascending colon, repeat exam in 1 year, mildly congested mucosa, biopsies taken -Patient will follow up with GI Dr. Chaparro in 6 weeks as outpatient Headache, resolved -Likely secondary to anemia -Sumatriptan 100mg po -Tramadol 50mg po prn HTN - continue Norvasc 5mg PO daily Anxiety - continue xanax 0.5mg PO daily prn Asthma -Albuterol HFA Prophylactic measures -SCD -Protonix Patient is stable to be discharge home Management per Dr. Baron
--- NOTE | 2017-02-05 17:11 | CP.PCM.PN ---
Subjective - Date & Time of Evaluation Date of Evaluation: 02/05/17 Time of Evaluation: 14:00 - Subjective Subjective: Feeling better s/p PRBC transfusion Objective - Vital Signs/Intake and Output Vital Signs (last 24 hours): Temp Pulse Resp BP Pulse Ox 98.0 F 74 20 120/75 100 02/05/17 15:00 02/05/17 15:00 02/05/17 15:00 02/05/17 15:00 02/05/17 15:00 Intake and Output: 02/05/17 02/05/17 06:59 18:59 Intake Total 1885 1380 Output Total 800 Balance 1885 580 - Medications Medications: Current Medications Acetaminophen (Tylenol 325mg Tab) 650 mg PO Q6 PRN PRN Reason: MILD pain 1-3 /fever Last Admin: 02/01/17 21:23 Dose: 650 mg Albuterol (Ventolin Hfa 90 Mcg/Actuation (8 G)) 1 puff INH DAILY [facility] Last Admin: 02/05/17 10:28 Dose: 1 puff Alprazolam (Xanax) 0.5 mg PO DAILY PRN PRN Reason: Anxiety Amlodipine Besylate (Norvasc) 5 mg PO DAILY [facility] Last Admin: 02/05/17 10:03 Dose: 5 mg Ferric Sodium Gluconate Complex 125 mg/ Sodium Chloride 110 mls @ 110 mls/hr IVPB DAILY [facility] Stop: 02/09/17 13:01 Last Admin: 02/05/17 10:04 Dose: 110 mls/hr Lactated Ringer's (Lactated Ringer's) 1,000 mls @ 75 mls/hr IV .[id number] [facility] Last Admin: 02/04/17 17:27 Dose: Not Given Metoclopramide HCl (Reglan) 5 mg PO Q6H PRN PRN Reason: Nausea/Vomiting Metoclopramide HCl (Reglan) 5 mg IVP Q6 [facility] Last Admin: 02/05/17 12:00 Dose: 5 mg Pantoprazole Sodium (Protonix Ec Tab) 40 mg PO DAILY [facility] Last Admin: 02/05/17 10:03 Dose: 40 mg Sucralfate (Carafate Tab) 1 gm PO DAILY [facility] Last Admin: 02/05/17 10:02 Dose: 1 gm Sumatriptan Succinate (Imitrex Tab) 100 mg PO DAILY [facility] Last Admin: 02/05/17 10:03 Dose: 100 mg Tramadol HCl (Ultram) 50 mg PO DAILY PRN PRN Reason: Pain, moderate (4-7) Last Admin: 02/03/17 06:24 Dose: 50 mg - Labs Labs: 02/05/17 07:53 02/05/17 07:53 PT 11.9 SECONDS (9.7-12.2) 01/31/17 20:55 INR 1.0 01/31/17 20:55 APTT 32 SECONDS (21-34) 01/31/17 20:55 - Head Exam Head Exam: ATRAUMATIC - Eye Exam Eye Exam: Normal appearance - ENT Exam ENT Exam: Mucous Membranes Dry - Respiratory Exam Respiratory Exam: NORMAL BREATHING PATTERN - Cardiovascular Exam Cardiovascular Exam: +S1, +S2 - GI/Abdominal Exam GI & Abdominal Exam: Normal Bowel Sounds Assessment and Plan (1) Anemia Assessment & Plan: iron deficiency menorrhagia GI w/u s/p 2U PRBC on IV iron Status: Acute (2) Rectal cancer Assessment & Plan: in remission Status: Acute
== END 2017-02-05 17:05 | disposition home or self-care (01) | DRG 173 ==
LOC: C.ER 20:23 → C.3T 22:41
PROVIDERS: ADMIT Internal Medicine Pulmonary Disease; ATTEND Internal Medicine Pulmonary Disease
PROC: 0DB58ZX Excision of Esophagus, Via Natural or Artificial Opening Endoscopic, Diagnostic (ICD-10-PCS; 2017-01-31)
PROC: 0DB68ZX Excision of Stomach, Via Natural or Artificial Opening Endoscopic, Diagnostic (ICD-10-PCS; 2017-01-31)
PROC: 0DBK8ZX Excision of Ascending Colon, Via Natural or Artificial Opening Endoscopic, Diagnostic (ICD-10-PCS; principal; 2017-02-03 10:37)
DX: C20 Malignant neoplasm of rectum (principal); D50.9 Iron deficiency anemia, unspecified; N92.0 Excessive and frequent menstruation with regular cycle; G43.909 Migraine, unspecified, not intractable, without status migrainosus; J45.909 Unspecified asthma, uncomplicated; I10 Essential (primary) hypertension; F41.9 Anxiety disorder, unspecified; K57.90 Diverticulosis of intestine, part unspecified, without perforation or abscess without bleeding; D63.0 Anemia in neoplastic disease; K20.8 Other esophagitis; K44.9 Diaphragmatic hernia without obstruction or gangrene; K29.00 Acute gastritis without bleeding

== ENCOUNTER 2017-06-27 06:43 | Inpatient (IN) | payer MEDICAID, OTHER ==
[2017-06-27 06:43] VITALS: BMI 24.0
[2017-06-27] MEDS ORDERED: Sodium Chloride 0.9% 1,000 ML IV ONE (07:26)
[2017-06-27] MEDS ORDERED: Sodium Chloride 0.9% 1,000 ML ONE (07:44)
[2017-06-27 07:54] LABS: BASO % 0.5 % (0.0-2.0); EOS % 0.2 % (0.0-4.0); LYMPH # 0.3 K/uL (1.0-4.3); LYMPH % 3.8 % (20.0-40.0); MEAN CORPUSCULAR HEMOGLOBIN 28.7 pg (27.0-31.0); MEAN CORPUSCULAR HGB CONC 33.8 g/dL (33.0-37.0); MEAN PLATELET VOLUME 10.7 fL (7.2-11.7); MONO # 0.1 K/uL (0.0-0.8); MONO % 1.6 % (0.0-10.0); NEUT # 7.8 K/uL (1.8-7.0); NEUT % 93.9 % (50.0-75.0); RBC 4.97 Mil/uL (3.80-5.20); RED CELL DISTRIBUTION WIDTH 14.5 % (11.5-14.5); WHITE BLOOD COUNT 8.3 K/uL (4.8-10.8)
[2017-06-27 08:01] LABS: HEMOGLOBIN 14.3 g/dL (11.0-16.0)
[2017-06-27 08:02] LABS: PLATELET COUNT 157 K/uL (130-400)
[2017-06-27 08:08] LABS: SQUAMOUS EPITHIAL < 1 /hpf (0-5); URINE BILIRUBIN NEGATIVE (NEGATIVE); URINE CLARITY Clear (Clear); URINE COLOR Yellow (YELLOW); URINE GLUCOSE (UA) NORMAL (Normal); URINE LEUKOCYTE ESTERASE NEG Leu/uL (Negative); URINE PROTEIN NEGATIVE (NEGATIVE); URINE UROBILINOGEN NORMAL mg/dL (0.2-1.0)
[2017-06-27 08:29] LABS: BANDS 13 % (0-2); EOSINOPHIL 1 % (0-4); LYMPHOCYTE 8 % (20-40); METAMYELOCYTE 1 % (0-0); MONOCYTE 1 % (0-10); NEUTROPHIL 76 % (50-75); TOTAL CELLS COUNTED 100
[2017-06-27 08:30] LABS: ALBUMIN 4.2 g/dL (3.5-5.0); ALT/SGPT 116 U/L (9-52); AST/SGOT 317 U/L (14-36); BLOOD UREA NITROGEN 10 mg/dL (7-17); CALCIUM 9.6 mg/dl (8.6-10.4); GFR AFRICAN-AMERICAN > 60; GFR NON-AFRICAN AMERICAN > 60; LIPASE 92 U/L (23-300)
[2017-06-27 08:31] LABS: ANISOCYTOSIS SLIGHT; PLATELET ESTIMATE NORMAL (NORMAL)
[2017-06-27 08:32] LABS: LARGE PLATELETS PRESENT
[2017-06-27 08:42] LABS: CK-MB 0.28 ng/mL (0.0-3.38)
[2017-06-27 08:44] LABS: URINE BLOOD TRACE (NEGATIVE)
--- NOTE | 2017-06-27 09:24 | C.PDOC ---
History Of Present Illness [id number] female presents to ED for complaints of diffuse abdominal pain associated with 3 episodes of nausea and vomiting that began yesterday. Patient states pain worsened this morning, prompting her ER visit. She also reports that the abdomen pain radiates to her chest. Patient has Hx of colorectal cancer , is s/p colon resection 2014 with colostomy. Patient denies fever, SOB, diarrhea, dysuria/hematuria. Patient's GI doctor is . Time Seen by Provider: 06/27/17 07:13 Chief Complaint (Nursing): Abdominal Pain History Per: Patient History/Exam Limitations: no limitations Onset/Duration Of Symptoms: Days (1) Current Symptoms Are (Timing): Still Present Location Of Pain/Discomfort: Diffuse Radiation Of Pain To:: Chest Quality Of Discomfort: "Pain" Associated Symptoms: Nausea, Vomiting. denies: Fever, Chills, Diarrhea, Urinary Symptoms Exacerbating Factors: None Alleviating Factors: None Last Bowel Movement: Today Recent travel outside of the [place]: No Abnormal Vaginal Bleeding: No Past Medical History Reviewed: Historical Data, Nursing Documentation, Vital Signs Vital Signs: Last Vital Signs Temp 97.9 F 06/28/17 08:08 Pulse 72 06/28/17 08:08 Resp 20 06/28/17 08:08 BP 131/68 06/28/17 08:08 Pulse Ox 100 06/28/17 16:24 - Medical History PMH: Anemia, Anxiety, Asthma, Colonic Polyps, Depression, HTN, Hypercholesterolemia, Migraine Surgical History: Endoscopy - [facility] Procedures BYPASS SIGMOID COLON TO CUTANEOUS, OPEN APPROACH (01/15/15) EXCISION OF ASCENDING COLON, ENDO, DIAGN (01/31/17) EXCISION OF ESOPHAGUS, ENDO, DIAGN (01/31/17) EXCISION OF RECTUM, ENDO, DIAGN (11/23/14) EXCISION OF RECTUM, VIA NATURAL OR ARTIFICIAL OPENING (11/23/14) EXCISION OF SIGMOID COLON, OPEN APPROACH (01/15/15) EXCISION OF STOMACH, ENDO, DIAGN (01/31/17) RESECTION OF APPENDIX, OPEN APPROACH (01/15/15) RESECTION OF RECTUM, OPEN APPROACH (01/15/15) Family History: States: No Known Family Hx - Social History Hx Alcohol Use: No Hx Substance Use: No Review Of Systems Constitutional: Negative for: Fever, Chills Cardiovascular: Negative for: Chest Pain Respiratory: Negative for: Cough, Shortness of Breath Gastrointestinal: Positive for: Nausea, Vomiting (3 episodes ), Abdominal Pain ( Diffuse and radiates to chest ). Negative for: Diarrhea Genitourinary: Negative for: Dysuria, Hematuria Skin: Negative for: Rash Neurological: Negative for: Weakness, Numbness Physical Exam - Physical Exam Appears: Well, Non-toxic, Other (Mildly uncomfortable ) Skin: Normal Color, Warm, Dry Eye(s): bilateral: Normal Inspection Oral Mucosa: Moist Chest: Symmetrical, No Tenderness Cardiovascular: Rhythm Regular Respiratory: Normal Breath Sounds, No Decreased Breath Sounds, No Rales, No Rhonchi, No Wheezing Gastrointestinal/Abdominal: Bowel Sounds, Soft, Tenderness (Diffuse TTP ), No Guarding, No Rebound, Other (Left periumbilical area with colostomy bag with brown liquid stool ) Extremity: Normal ROM Neurological/Psych: Oriented x3 Gait: Steady ED Course And Treatment - Laboratory Results Result Diagrams: 06/28/17 08:21 06/28/17 08:01 O2 Sat by Pulse Oximetry: 100 (RA) Pulse Ox Interpretation: Normal - Other Rad Abdomen Obstructive Series X-Ray X-Ray: Viewed By Me, Read By Radiologist Interpretation: PROCEDURE: Radiographs of the chest and abdomen (obstructive series). HISTORY: chest pain, nausea/vomiting. COMPARISON: No prior. TECHNIQUE: AP radiograph of the chest, with upright and supine radiographs of the abdomen. FINDINGS: CHEST: Lungs: Clear. Cardiovascular: Normal size heart. No pulmonary vascular congestion. Pleura: No pleural fluid. No pneumothorax. Other findings: None. ABDOMEN AND PELVIS: Bowel: Unremarkable bowel gas pattern. No evidence of mechanical obstruction. Free air: None. Bones: Unremarkable. Other findings: Apparent left lower quadrant/ flank ostomy. IMPRESSION: Nonobstructive bowel gas pattern. Left lower quadrant/ flank ostomy reiterated the overall appearance of the not dramatically change greater prior abdomen obstructive 02/20/2016. No acute cardiopulmonary disease appreciable. - CT Scan/US CT ABD/PELVIS Other Rad Studies (CT/US): Read By Radiologist, Radiology Report Reviewed CT/US Interpretation: Accession No. : [id number]. Patient Name / ID : DYLAN REYNA / [id number]. Exam Date : 06/27/2017 10:45:36 ( Approved ). Study Comment : Sex / Age : F / 47Y. Creator : Bao Arroyo MD. Dictator : Bao Arroyo MD. Bung Dropper : Package Liner : Bao Arroyo MD. Approver2 : Report Date : 06/27/2017 11:42:54. My Comment : . PROCEDURE: CT Abdomen and Pelvis with contrast. HISTORY: abdominal pain, nausea/vomiting/diarrhea. COMPARISON: None. TECHNIQUE: Following the intravenous administration of iodinated contrast material, a CT examination of the abdomen and pelvis performed from the domes of the diaphragms to the symphysis pubis with reformatted datasets provided not only axial but also sagittal and coronal planes. Oral contrast was not administered as per referring physician request. Contrast dose: Visipaque 320, 100 cc. Radiation dose: Total exam DLP = 325.77 mGy-cm. This CT exam was performed using one or more of the following dose reduction techniques: Automated exposure control, adjustment of the mA and/or kV according to patient size, and/or use of iterative reconstruction technique. FINDINGS: LOWER THORAX: UnremarkableA 4.0 mm nodule is solid and appears noncalcified in the left lower lobe and image 6 series 5, potentially subpleural. Lung bases otherwise appear unremarkable as imaged. LIVER: Mild periportal edema is appreciated, nonspecific finding. A stable 5 mm lucency is seen at the medial left lobe liver approaching the watershed zone in the periphery, once again. GALLBLADDER AND BILE DUCTS: Contracted. No associated radiodense cholelithiasis. Trace pericholecystic fluid is identified however of uncertain origin. No mural thickening is related. Clinically correlate for potential cholecystitis although the gallbladder is nearly completely contracted. PANCREAS: Unremarkable. No gross lesion or ductal dilatation. SPLEEN: Unremarkable. ADRENALS: Unremarkable. No mass. KIDNEYS AND URETERS: Unremarkable. No hydronephrosis. No solid mass. VASCULATURE: Unremarkable. No aortic aneurysm. BOWEL: Pain status post distal left colectomy with left lower quadrant colostomy stable in appearance. No bowel obstruction is evident. Lack oral contrast limits evaluation the bowel, particularly the residual left hemicolon which is collapsed. Mural thickening is due to exclude and segmental colitis is not excluded here. Further, a nonspecific collection of fluid or cystic changes seen in the midline to right parasagittal pelvis measuring 4.2 x 4.8 cm , not clearly identified on the prior CT noted above. Is unclear whether this reflects postoperative residual chronic cystic change or possibly ovarian cystic changes with the latter not favored. Follow-up transvaginal pelvic ultrasound may be helpful further characterization. APPENDIX: Not identified. Clinically correlate. No definite CT pattern of appendicitis at this time. PERITONEUM: Unremarkable. No free fluid. No free air. LYMPH NODES: Unremarkable. No enlarged lymph nodes. BLADDER: Unremarkable. REPRODUCTIVE: Interval hysterectomy questioned. BONES: No acute fracture. OTHER FINDINGS: None. IMPRESSION: 1. Distal left partial colectomy reiterated with left lower quadrant colostomy stable. No bowel obstruction evident. 2. Questionable segmental colitis residual left hemicolon. Consider infectious or inflammatory causes with neoplasm not completely excluded either. 3. Multiple cysts are identified at the right paracentral/midline pelvis with the aggregate measuring up to 4.8 cm greatest dimension, of uncertain origin but a definite interval finding. Consider possible ovarian or parovarian origin. This may be put operative from the patient's prior colon surgery. Follow-up transvaginal pelvic ultrasonography may be helpful unless already evaluated. 4. Contracted gallbladder without radiodense cholelithiasis but with limited pericholecystic fluid of uncertain origin. Further clinical correlation is advised. Progress Note: Blood work, UA, CT scan abd/pelvis ordered and reviewed. Patient given IV protonix, IV NS bolus. CT scan shows segmental colitis, patient has significant bandemia - will admit. IV Ciprofloxacin and IV flagyl ordered. PMD is Dr. Cornejo, patient is uninsured - will admit to hospitalist service. 11:45am- Patient still c/o sigificant abdominal pain - IV morphine ordered. - Physician Consult Information Physician Contacted: Wayne Chaparro Outcome Of Conversation: Discussed patient with her GI, aware patient in ED, will see her on GI consult. Disposition - Disposition Disposition: HOSPITALIZED Disposition Time: 11:57 Condition: STABLE - Clinical Impression Clinical Impression: Colitis, Bandemia, Elevated LFTs - Scribe Statement The provider has reviewed the documentation as recorded by the Peace Scanlon All medical record entries made by the Diegoibrosibel were at my direction and personally dictated by me. I have reviewed the chart and agree that the record accurately reflects my personal performance of the history, physical exam, medical decision making, and the department course for this patient. I have also personally directed, reviewed, and agree with the discharge instructions and disposition. Decision To Admit - Pt Status Changed To: Hospital Disposition Of: Inpatient - Admit Certification Admit to Inpatient:: After my assessment, the patient will require hospitalization for at least two midnights. This is because of the severity of symptoms shown, intensity of services needed, and/or the medical risk in this patient being treated as an outpatient. - InPatient: Physician Admission Certification:: see notes - . Bed Request Type: Regular Admitting Physician: Estephania Rose Patient Diagnosis: Colitis, Bandemia, Elevated LFTs
[2017-06-27] MEDS ORDERED: Iodixanol 320 mg/ml 150 ml Bottle IV ONE (09:56)
--- NOTE | 2017-06-27 11:07 | RAD ---
PROCEDURE: Radiographs of the chest and abdomen (obstructive series) HISTORY: chest pain, nausea/vomiting COMPARISON: No prior. TECHNIQUE: AP radiograph of the chest, with upright and supine radiographs of the abdomen. FINDINGS: CHEST: Lungs: Clear. Cardiovascular: Normal size heart. No pulmonary vascular congestion. Pleura: No pleural fluid. No pneumothorax. Other findings: None. ABDOMEN AND PELVIS: Bowel: Unremarkable bowel gas pattern. No evidence of mechanical obstruction. Free air: None. Bones: Unremarkable. Other findings: Apparent left lower quadrant/ flank ostomy. IMPRESSION: Nonobstructive bowel gas pattern. Left lower quadrant/ flank ostomy reiterated the overall appearance of the not dramatically change greater prior abdomen obstructive 02/20/2016. No acute cardiopulmonary disease appreciable.
--- NOTE | 2017-06-27 11:44 | CT ---
PROCEDURE: CT Abdomen and Pelvis with contrast HISTORY: abdominal pain, nausea/vomiting/diarrhea COMPARISON: None. TECHNIQUE: Following the intravenous administration of iodinated contrast material, a CT examination of the abdomen and pelvis performed from the domes of the diaphragms to the symphysis pubis with reformatted datasets provided not only axial but also sagittal and coronal planes. Oral contrast was not administered as per referring physician request. Contrast dose: Visipaque 320, 100 cc Radiation dose: Total exam DLP = 325.77 mGy-cm. This CT exam was performed using one or more of the following dose reduction techniques: Automated exposure control, adjustment of the mA and/or kV according to patient size, and/or use of iterative reconstruction technique. FINDINGS: LOWER THORAX: UnremarkableA 4.0 mm nodule is solid and appears noncalcified in the left lower lobe and image 6 series 5, potentially subpleural. Lung bases otherwise appear unremarkable as imaged. LIVER: Mild periportal edema is appreciated, nonspecific finding. A stable 5 mm lucency is seen at the medial left lobe liver approaching the watershed zone in the periphery, once again. GALLBLADDER AND BILE DUCTS: Contracted. No associated radiodense cholelithiasis. Trace pericholecystic fluid is identified however of uncertain origin. No mural thickening is related. Clinically correlate for potential cholecystitis although the gallbladder is nearly completely contracted. PANCREAS: Unremarkable. No gross lesion or ductal dilatation. SPLEEN: Unremarkable. ADRENALS: Unremarkable. No mass. KIDNEYS AND URETERS: Unremarkable. No hydronephrosis. No solid mass. VASCULATURE: Unremarkable. No aortic aneurysm. BOWEL: Pain status post distal left colectomy with left lower quadrant colostomy stable in appearance. No bowel obstruction is evident. Lack oral contrast limits evaluation the bowel, particularly the residual left hemicolon which is collapsed. Mural thickening is due to exclude and segmental colitis is not excluded here. Further, a nonspecific collection of fluid or cystic changes seen in the midline to right parasagittal pelvis measuring 4.2 x 4.8 cm, not clearly identified on the prior CT noted above. Is unclear whether this reflects postoperative residual chronic cystic change or possibly ovarian cystic changes with the latter not favored. Follow-up transvaginal pelvic ultrasound may be helpful further characterization. APPENDIX: Not identified. Clinically correlate. No definite CT pattern of appendicitis at this time. PERITONEUM: Unremarkable. No free fluid. No free air. LYMPH NODES: Unremarkable. No enlarged lymph nodes. BLADDER: Unremarkable. REPRODUCTIVE: Interval hysterectomy questioned. BONES: No acute fracture. OTHER FINDINGS: None. IMPRESSION: 1. Distal left partial colectomy reiterated with left lower quadrant colostomy stable. No bowel obstruction evident. 2. Questionable segmental colitis residual left hemicolon. Consider infectious or inflammatory causes with neoplasm not completely excluded either. 3. Multiple cysts are identified at the right paracentral/midline pelvis with the aggregate measuring up to 4.8 cm greatest dimension, of uncertain origin but a definite interval finding. Consider possible ovarian or parovarian origin. This may be put operative from the patient's prior colon surgery. Follow-up transvaginal pelvic ultrasonography may be helpful unless already evaluated. 4. Contracted gallbladder without radiodense cholelithiasis but with limited pericholecystic fluid of uncertain origin. Further clinical correlation is advised.
[2017-06-27] MEDS ORDERED: Ciprofloxacin 400mg/200ml D5W 400 MG/200 ML BAG IVPB STA (11:48)
[2017-06-27] MEDS ORDERED: metroNIDAZOLE IV 500 mg/100 ml 500 MG/100 ML BAG IVPB STA (11:49)
[2017-06-27] MEDS ORDERED: Morphine 4 MG/ML VIAL ONE (12:04)
[2017-06-27] MEDS ORDERED: Ciprofloxacin 400mg/200ml D5W 400 MG/200 ML BAG IVPB ONE (12:05)
[2017-06-27] MEDS ORDERED: metroNIDAZOLE IV 500 mg/100 ml 500 MG/100 ML BAG ONE (12:05)
--- NOTE | 2017-06-27 13:38 | CP.PCM.HP ---
<Ines Garcia - Last Filed: 06/27/17 15:20> History of Present Illness - History of Present Illness History of Present Illness: Medicine Note for Hospitalist Service- Dr. Clemente CC: nausea, vomiting, and abdominal pain < 12 hours HPI: This is a 47 year old female with PMHx as listed below, who presents to the ED with nausea, vomiting, abdominal pain for about 12 hours. She reports eating her usual dinner last night, when she started to experience nausea, vomiting, and her colostomy bag had liquid output requiring her to change her bag 3 times prior to admission. Admitted to chills, nausea, vomiting, abdominal pain and loose stool in colostomy bag. She reported seeing contents of food that she ate more than a week prior. She had 3-4 episodes of vomiting, with last episode being bilious. After changing her colostomy bag the 3rd time she had mucous output. Denied sick contacts, recent travel. Fiance has been eating similar meals/ food as patient, did not get sick. Denied fever, headache, chest pain, SOB, or urinary symptoms. PMHx: Hx of Colorectal Adenocarcinoma s/p resection with permanent colostomy, HTN, Migraine, Iron Deficiency Anemia 2/2 menorrhagia PSHx: Appendectomy and abdominoperineal resection for colon cancer resection, hysterectomy Meds: As per MAR All: NKDA SHx: Denied alcohol, tobacco, or illicit drug use FHx: Multiple malignancies on both mother and father's side; colon, breast PMD: Dr. Cornejo Heme/ Onc: Dr. Luciano Cortes GI: Dr. Chaparro Neuro: Dr. Pradeep Paz Present on Admission - Present on Admission Any Indicators Present on Admission: No Past Patient History - Past Medical History & Family History Past Medical History?: Yes - Past Social History Smoking Status: Never Smoked - CARDIAC Hx Hypercholesterolemia: Yes Hx Hypertension: Yes - PULMONARY Hx Asthma: Yes - NEUROLOGICAL Hx Migraine: Yes - HEENT Hx HEENT Problems: No Other/Comment: wears reading glass - HEMATOLOGICAL/ONCOLOGICAL Hx Anemia: Yes - INTEGUMENTARY Hx Dermatological Problems: No - PSYCHIATRIC Hx Anxiety: Yes Hx Depression: Yes Hx Substance Use: No - ANESTHESIA Hx Anesthesia: Yes Hx Anesthesia Reactions: No Hx Malignant Hyperthermia: No Meds Allergies/Adverse Reactions: Allergies Allergy/AdvReac Type Severity Reaction Status Date / Time No Known Allergies Allergy Verified 06/27/17 06:52 Physical Exam - Constitutional Appears: No Acute Distress - Head Exam Head Exam: NORMAL INSPECTION, NORMOCEPHALIC - Eye Exam Eye Exam: EOMI, Normal appearance, PERRL Pupil Exam: NORMAL ACCOMODATION - ENT Exam ENT Exam: Mucous Membranes Moist, Normal Exam - Respiratory Exam Respiratory Exam: Clear to Auscultation Bilateral, NORMAL BREATHING PATTERN. absent: Decreased Breath Sounds, Wheezes - Cardiovascular Exam Cardiovascular Exam: REGULAR RHYTHM, RRR - GI/Abdominal Exam GI & Abdominal Exam: Soft, Tenderness (LUQ, lower abdomen ). absent: Distended , Guarding, Hernia Additional comments: stoma pink, bag recently changed. Colostomy well maintained - Rectal Exam Rectal Exam: Deferred - Extremities Exam Extremities exam: Positive for: normal inspection, pedal pulses present. Negative for: pedal edema, tenderness - Neurological Exam Neurological exam: Alert, CN II-XII Intact, Oriented x3 - Psychiatric Exam Psychiatric exam: Normal Affect, Normal Mood - Skin Skin Exam: Dry, Intact, Normal Color, Warm Results - Vital Signs Recent Vital Signs: Last Vital Signs Temp 98.9 F 06/27/17 12:49 Pulse 85 06/27/17 12:49 Resp 16 06/27/17 12:49 BP 125/79 06/27/17 12:49 Pulse Ox 99 06/27/17 12:49 - Labs Result Diagrams: 06/27/17 07:46 06/27/17 07:46 Labs: Laboratory Results - last 24 hr 06/27/17 06/27/17 06/27/17 07:46 07:46 08:02 WBC 8.3 RBC 4.97 Hgb 14.3 D Hct 42.3 MCV 85.0 D MCH 28.7 MCHC 33.8 RDW 14.5 Plt Count 157 D MPV 10.7 Neut % (Auto) 93.9 H Lymph % (Auto) 3.8 L Carbon % (Auto) 1.6 Eos % (Auto) 0.2 Baso % (Auto) 0.5 Neut # (Auto) 7.8 H Lymph # (Auto) 0.3 L Carbon # (Auto) 0.1 Eos # (Auto) 0.0 Baso # (Auto) 0.0 Neutrophils % (Manual) 76 H Band Neutrophils % 13 H* Lymphocytes % (Manual) 8 L Monocytes % (Manual) 1 Eosinophils % (Manual) 1 Metamyelocytes % 1 H Platelet Estimate Normal Large Platelets Present Anisocytosis (manual) Slight Sodium 144 Potassium 3.7 Chloride 105 Carbon Dioxide 25 Anion Gap 17 BUN 10 Creatinine 0.7 Est GFR ( Amer) > 60 Est GFR (Non-Af Amer) > 60 Random Glucose 130 H Calcium 9.6 Total Bilirubin 1.3 AST 317 H D ALT 116 H D Alkaline Phosphatase 140 H D Total Creatine Kinase 118 CK-MB (Mass) 0.28 Troponin I 0.0170 Total Protein 8.6 H Albumin 4.2 Globulin 4.3 H Albumin/Globulin Ratio 1.0 Lipase 92 Urine Color Yellow Urine Clarity Clear Urine pH 7.0 Ur Specific [place] 1.012 Urine Protein Negative Urine Glucose (UA) Normal Urine Ketones Negative Urine Blood Trace Urine Nitrate Negative Urine Bilirubin Negative Urine Urobilinogen Normal Ur Leukocyte Esterase Neg Urine WBC (Auto) < 1 Urine RBC (Auto) 2 Ur Squamous Epith Cells < 1 Assessment & Plan - Assessment and Plan (Free Text) Assessment: This is a 47 year old female with PMHx of Hx of Colorectal Adenocarcinoma s/p resection with permanent colostomy, HTN, Migraine, Iron Deficiency Anemia 2/2 menorrhagia , who presents to the ED with nausea, vomiting, abdominal pain for about 12 hours, diagnosed with colitis. Plan: Colitis - Afebrile, vitals stable, no leukocytosis, left shift with bandemia, lactate level f/u - CT abdomen & pelvis: colitis in the left hemicolon Management: - NPO - NS @ 100cc/hr - Cipro, Flagyl - Protonix IVP, Morphine PRN for pain - F/U BC, stool studies Transaminitis - T.bili WNL - AST/ALT: 317/116 - Will continue to monitor History of Colorectal Cancer s/p resection in 2014 (pT1 N0) with LLQ Colostomy - Rectal adnocarcinoma and high grade syplasia per Dr. Chaparro on 11/24/2014 from recal polyp biopsy. Underwent abdominoperineal resection and incidental appendectomy for rectal adenocarcinoma by Dr. Puga. - Resumed Sucralfate Hx HTN -Restarted home medication: Norvasc Hx Migraine - Restarted home medications Topamax, Imitrex Hx Chronic Iron Deficiency 2/2 menorrhagia - Hemoglobin stable - S/P hysterectomy 03/[address] Berg Prophylaxis - GI PPX: Protonix IV - DVT PPX: Lovenox 40 SC DW Ines Ibrahim DO, PGY-1 <Mary Kate Clemente V - Last Filed: 06/28/17 15:12> Results - Vital Signs Recent Vital Signs: Last Vital Signs Temp 97.9 F 06/28/17 08:08 Pulse 72 06/28/17 08:08 Resp 20 06/28/17 08:08 BP 131/68 06/28/17 08:08 Pulse Ox 100 06/28/17 08:08 - Labs Result Diagrams: 06/28/17 08:21 06/28/17 08:01 Labs: Laboratory Results - last 24 hr 06/27/17 06/27/17 06/27/17 13:38 13:38 17:10 WBC RBC Hgb Hct MCV MCH MCHC RDW Plt Count MPV Neut % (Auto) Lymph % (Auto) Carbon % (Auto) Eos % (Auto) Baso % (Auto) Neut # (Auto) Lymph # (Auto) Carbon # (Auto) Eos # (Auto) Baso # (Auto) PT INR APTT Sodium Potassium Chloride Carbon Dioxide Anion Gap BUN Creatinine Est GFR ( Amer) Est GFR (Non-Af Amer) Random Glucose Lactic Acid 1.3 Calcium Magnesium Total Bilirubin AST ALT Alkaline Phosphatase Total Protein Albumin Globulin Albumin/Globulin Ratio Alpha Fetoprotein Carcinoembryonic Ag CA 125 Antigen Stool Leukocytes, Qual Positive H C. difficile Ag & Toxin Negative Hepatitis A IgM Ab Hep Bs Antigen Hep B Core IgM Ab Hepatitis C Antibody 06/28/17 06/28/17 06/28/17 08:01 08:01 08:21 WBC 6.5 RBC 3.96 Hgb 11.5 D Hct 33.5 L MCV 84.6 MCH 29.0 MCHC 34.3 RDW 14.1 Plt Count 146 MPV 11.4 Neut % (Auto) 76.2 H Lymph % (Auto) 15.2 L Carbon % (Auto) 6.3 Eos % (Auto) 1.8 Baso % (Auto) 0.5 Neut # (Auto) 4.9 Lymph # (Auto) 1.0 Carbon # (Auto) 0.4 Eos # (Auto) 0.1 Baso # (Auto) 0.0 PT INR APTT Sodium 143 Potassium 3.5 L Chloride 110 H Carbon Dioxide 26 Anion Gap 11 BUN 4 L Creatinine 0.8 Est GFR ( Amer) > 60 Est GFR (Non-Af Amer) > 60 Random Glucose 83 Lactic Acid Calcium 8.1 L Magnesium 1.8 Total Bilirubin 0.7 AST 216 H D ALT 327 H D Alkaline Phosphatase 123 Total Protein 6.6 Albumin 3.2 L D Globulin 3.4 Albumin/Globulin Ratio 1.0 Alpha Fetoprotein Carcinoembryonic Ag CA 125 Antigen Stool Leukocytes, Qual C. difficile Ag & Toxin Hepatitis A IgM Ab Negative Hep Bs Antigen Negative Hep B Core IgM Ab Negative Hepatitis C Antibody Negative 06/28/17 06/28/17 06/28/17 11:18 11:18 11:18 WBC RBC Hgb Hct MCV MCH MCHC RDW Plt Count MPV Neut % (Auto) Lymph % (Auto) Carbon % (Auto) Eos % (Auto) Baso % (Auto) Neut # (Auto) Lymph # (Auto) Carbon # (Auto) Eos # (Auto) Baso # (Auto) PT 13.8 H INR 1.3 APTT 44 H Sodium Potassium Chloride Carbon Dioxide Anion Gap BUN Creatinine Est GFR ( Amer) Est GFR (Non-Af Amer) Random Glucose Lactic Acid Calcium Magnesium Total Bilirubin AST ALT Alkaline Phosphatase Total Protein Albumin Globulin Albumin/Globulin Ratio Alpha Fetoprotein 2.0 Carcinoembryonic Ag 1.6 CA 125 Antigen 10.6 Stool Leukocytes, Qual C. difficile Ag & Toxin Hepatitis A IgM Ab Hep Bs Antigen Hep B Core IgM Ab Hepatitis C Antibody Attending/Attestation - Attestation I have personally seen and examined this patient.: Yes I have fully participated in the care of the patient.: Yes I have reviewed all pertinent clinical information: Yes Notes (Text): This is late computer entry 06/27/17. Patient seen, examined and case discussed with medical services manager. Patient seen at bedside with her fiance, Chandler Ortiz at bedside; patient permits discussion of health information in front of her fiance. Patient reports she recently eaten Kisw[place]ili food about two nights ago, had short ribs and pork fried rice, and started having abdominal pain, nausea and liquid output from her ostomy. patient reports she had to change her ostomy about three times prior to coming to the hospital; which was all liquid. Patient denies any recent travel, denies any chemotherapy, denies recent hospitalization , except for hysterectomy for menorhagia which was about two months ago. Patient with known history of hypertension, migraines, iron deficiency, history of colorectal cancer s/p resection with LLQ ostomy. Discussed admitting orders with day-time resident. Will start IV to cover for infectious etiology Will start IV fluids for dehydration Will consult patient's GI, Dr. Chaparro Assessment/Plan 1) Colitis * monitor on general medical floor * GI (Dr. Chaparro) on consult-->help appreciated * Ct abdomen/pelvis (06/27/17): distal left partial colectomy reiterated with left lower quadrant colostomy stable. No bowel obstruction evident. Questionable segmental colitis residual left hemicolon. Multiple cysts are identified at the right paracentral/midline pelvis with aggregrate measuring up to 4.8cm greatest dimension. Contracted gallbladder without radiodense cholelithiasis but with limited pericholecystic fluid * Afebrile, vitals stable, no leukocytosis, left shift with bandemia, lactate level f/u * NPO * NS 100cc.hr * Ciprofloxacin 500mg IV Q12H (active since 06/27/17) * Flagyl 500mg IV Q8H (active since 06/27/17) * Morphine 1mg IV Q4H PRN pain * Will f/u blood cultures and f/u stool studes (ova and parasites, leukocytes, culture, C. dif) 2) Transaminitis * monitor liver function tests * Order for hepatitis panel * Possible stress response to colitis 3) History of Colorectal Cancer s/p resection in 2014 (pT1 N0) with LLQ Colostomy * Rectal adnocarcinoma and high grade syplasia per Dr. Chaparro on 11/24/2014 from recal polyp biopsy. Underwent abdominoperineal resection and incidental appendectomy for rectal adenocarcinoma by Dr. Puga. * Resumed Sucralfate 4) Hypertension * Norvasc 5mg PO daily 5) Hx Migraine * Topamax 25mg PO daily * Imitrex 100mg PO qHS PRN 6) Hx Chronic Iron Deficiency 2/2 menorrhagia * Hemoglobin stable * S/P hysterectomy 03/[address] Carrillo ([facility]) 7) Prophylaxis * GI PPX: Protonix 40mg PO daily * DVT PPX: Lovenox 40 SC daily
[2017-06-27] MEDS: Sodium Chloride 0.9% 1,000 ML IV SCH (14:25)
[2017-06-27 14:27] VITALS: RESP 20
[2017-06-27] MEDS: metroNIDAZOLE IV 500 mg/100 ml 500 MG/100 ML BAG IVPB SCH (18:15)
[2017-06-28] MEDS: Ciprofloxacin 400mg/200ml D5W 400 MG/200 ML BAG IVPB SCH ×2 (00:45→13:35)
[2017-06-28] MEDS: Sodium Chloride 0.9% 1,000 ML IV SCH ×4 (00:51→19:00)
[2017-06-28] MEDS ORDERED: Morphine 4 MG/ML VIAL IVP PRN (01:00)
[2017-06-28] MEDS: metroNIDAZOLE IV 500 mg/100 ml 500 MG/100 ML BAG IVPB SCH ×3 (03:19→18:21)
[2017-06-28 08:14] LABS: BASO % 0.5 % (0.0-2.0); EOS # 0.1 K/uL (0.0-0.7); MONO # 0.4 K/uL (0.0-0.8); MONO % 6.3 % (0.0-10.0)
[2017-06-28 08:24] LABS: EOS % 1.8 % (0.0-4.0); LYMPH % 15.2 % (20.0-40.0); MEAN CELL VOLUME 84.6 fL (81.0-99.0); MEAN CORPUSCULAR HGB CONC 34.3 g/dL (33.0-37.0); MEAN PLATELET VOLUME 11.4 fL (7.2-11.7); NEUT # 4.9 K/uL (1.8-7.0); NEUT % 76.2 % (50.0-75.0); RBC 3.96 Mil/uL (3.80-5.20); RED CELL DISTRIBUTION WIDTH 14.1 % (11.5-14.5); WHITE BLOOD COUNT 6.5 K/uL (4.8-10.8)
[2017-06-28 08:35] LABS: HEMOGLOBIN 11.5 g/dL (11.0-16.0)
[2017-06-28 08:43] LABS: ALBUMIN 3.2 g/dL (3.5-5.0); ALT/SGPT 327 U/L (9-52); AST/SGOT 216 U/L (14-36); BLOOD UREA NITROGEN 4 mg/dL (7-17); CALCIUM 8.1 mg/dl (8.6-10.4); GFR AFRICAN-AMERICAN > 60; GFR NON-AFRICAN AMERICAN > 60
[2017-06-28 09:02] LABS: HEPATITIS B SURFACE AG Negative (NEGATIVE)
[2017-06-28 09:08] LABS: HEPATITIS A IGM NEGATIVE (NEGATIVE); HEPATITIS B CORE AB NEGATIVE (NEGATIVE)
[2017-06-28 09:19] LABS: HEPATITIS C ANTIBODY NEGATIVE (NEGATIVE)
--- NOTE | 2017-06-28 09:38 | CP.PCM.PN ---
<Ines Garcia - Last Filed: 06/28/17 09:35> Subjective - Date & Time of Evaluation Date of Evaluation: 06/28/17 Time of Evaluation: 09:00 - Subjective Subjective: Medicine Note for Hospitalist Service- Dr. Clemente Patient was seen and examined at bedside. Patient reports she had mild nausea overnight, denied any vomiting or loose BM in colostomy bag. She reports not having much of an appetite but would like to start having liquid diet for lunch. Abdominal pain is slowly improving. Denied fever, headache, chest pain, SOB, or urinary symptoms. Objective - Vital Signs/Intake and Output Vital Signs (last 24 hours): Temp Pulse Resp BP Pulse Ox 97.9 F 72 20 131/68 100 06/28/17 08:08 06/28/17 08:08 06/28/17 08:08 06/28/17 08:08 06/28/17 08:08 Intake and Output: 06/28/17 06/28/17 06:59 18:59 Intake Total 1600 Balance 1600 - Medications Medications: Current Medications Alprazolam (Xanax) 0.5 mg PO DAILY PRN PRN Reason: Anxiety Amlodipine Besylate (Norvasc) 5 mg PO DAILY [facility]IS Enoxaparin Sodium (Lovenox) 40 mg SC DAILY [facility] Sodium Chloride (Sodium Chloride 0.9%) 1,000 mls @ 100 mls/hr IV .Q10H LUIS Last Admin: 06/28/17 00:51 Dose: 100 mls/hr Ciprofloxacin (Cipro 400mg/200ml Dsw) 400 mg in 200 mls @ 133 mls/hr IVPB Q12H LUIS PRN Reason: Protocol Last Admin: 06/28/17 00:45 Dose: 133 mls/hr Metronidazole (Flagyl) 500 mg in 100 mls @ 100 mls/hr IVPB Q8H [facility]IS PRN Reason: Protocol Last Admin: 06/28/17 03:19 Dose: 100 mls/hr Morphine Sulfate (Morphine) 1 mg IVP Q4H PRN PRN Reason: Pain, severe (8-10) Last Admin: 06/28/17 01:01 Dose: 1 mg Ondansetron HCl (Zofran Inj) 4 mg IVP Q6 PRN PRN Reason: Nausea/Vomiting Last Admin: 06/28/17 00:50 Dose: 4 mg Pantoprazole Sodium (Protonix Inj) 40 mg IVP DAILY [facility] Pneumococcal Polyvalent Vaccine (Pneumovax 23 Vaccine) 0.5 ml IM .ONCE ONE Stop: 06/30/17 10:01 Sucralfate (Carafate Tab) 1 gm PO DAILY [facility] Sumatriptan Succinate (Imitrex Tab) 100 mg PO DAILY PRN PRN Reason: Headache Topiramate (Topamax) 25 mg PO DAILY LUIS - Labs Labs: 06/28/17 08:21 06/28/17 08:01 - Additional Findings Additional findings: - Constitutional Appears: No Acute Distress - Head Exam Head Exam: NORMAL INSPECTION, NORMOCEPHALIC - Eye Exam Eye Exam: EOMI, Normal appearance, PERRL Pupil Exam: NORMAL ACCOMODATION - ENT Exam ENT Exam: Mucous Membranes Moist, Normal Exam - Respiratory Exam Respiratory Exam: Clear to Auscultation Bilateral, NORMAL BREATHING PATTERN. absent: Decreased Breath Sounds, Wheezes - Cardiovascular Exam Cardiovascular Exam: REGULAR RHYTHM, RRR - GI/Abdominal Exam GI & Abdominal Exam: Soft, Tenderness (LUQ, lower abdomen ). absent: Distended , Guarding, Hernia Additional comments: stoma pink, bag empty no output since changed in the ED. Colostomy well maintained - Rectal Exam Rectal Exam: Deferred - Extremities Exam Extremities exam: Positive for: normal inspection, pedal pulses present. Negative for: pedal edema, tenderness - Neurological Exam Neurological exam: Alert, CN II-XII Intact, Oriented x3 - Psychiatric Exam Psychiatric exam: Normal Affect, Normal Mood - Skin Skin Exam: Dry, Intact, Normal Color, Warm Assessment and Plan - Assessment and Plan (Free Text) Assessment: This is a 47 year old female with PMHx of Hx of Colorectal Adenocarcinoma s/p resection with permanent colostomy, HTN, Migraine, Iron Deficiency Anemia 2/2 menorrhagia , who presents to the ED with nausea, vomiting, abdominal pain for about 12 hours, diagnosed with colitis. Plan: Colitis - Gastroenterlogy consulted - Dr. Chaparro (patient's personal GI) - ordered tumor markers and requested transvaginal for abnormal CT scan findings - Afebrile, vitals stable, no leukocytosis, left shift with bandemia, lactate level 1.3 - CT abdomen & pelvis: colitis in the left hemicolon Management: - NPO will continue to advance as tolerated - NS @ 100cc/hr - Cipro, Flagyl - Protonix IVP, Morphine PRN for pain - F/U BC, stool studies, tumor markers Transaminitis - T.bili WNL - AST/ALT: 317/116 --> improving - Will continue to monitor Abnormal pelvic findings on CT Scan Hx Chronic Iron Deficiency 2/2 menorrhagia - Hemoglobin stable - S/P hysterectomy 03/[address] Berg, unknown if ovaries are still maintained. - Follow up with Transvaginal US History of Colorectal Cancer s/p resection in 2014 (pT1 N0) with LLQ Colostomy - Rectal adnocarcinoma and high grade syplasia per Dr. Chaparro on 11/24/2014 from recal polyp biopsy. Underwent abdominoperineal resection and incidental appendectomy for rectal adenocarcinoma by Dr. Puga. - Resumed Sucralfate Hx HTN -Restarted home medication: Norvasc Hx Migraine - Restarted home medications Topamax, Imitrex Prophylaxis - GI PPX: Protonix IV - DVT PPX: Lovenox 40 SC Disposition: Pending patient's clinical improvement, anticipate discharge tomorrow. DW Ines Ibrahim DO, PGY-1 <Mary Kate Clemente V - Last Filed: 06/28/17 15:17> Objective - Vital Signs/Intake and Output Vital Signs (last 24 hours): Temp Pulse Resp BP Pulse Ox 97.9 F 72 20 131/68 100 06/28/17 08:08 06/28/17 08:08 06/28/17 08:08 06/28/17 08:08 06/28/17 08:08 Intake and Output: 06/28/17 06/28/17 06:59 18:59 Intake Total 1600 Balance 1600 - Medications Medications: Current Medications Alprazolam (Xanax) 0.5 mg PO DAILY PRN PRN Reason: Anxiety Amlodipine Besylate (Norvasc) 5 mg PO DAILY [facility] Last Admin: 06/28/17 10:08 Dose: 5 mg Enoxaparin Sodium (Lovenox) 40 mg SC DAILY [facility] Last Admin: 06/28/17 10:07 Dose: 40 mg Sodium Chloride (Sodium Chloride 0.9%) 1,000 mls @ 100 mls/hr IV .Q10H [facility] Last Admin: 06/28/17 10:08 Dose: Not Given Ciprofloxacin (Cipro 400mg/200ml Dsw) 400 mg in 200 mls @ 133 mls/hr IVPB Q12H [facility]IS PRN Reason: Protocol Last Admin: 06/28/17 13:35 Dose: 133 mls/hr Metronidazole (Flagyl) 500 mg in 100 mls @ 100 mls/hr IVPB Q8H [facility]IS PRN Reason: Protocol Last Admin: 06/28/17 10:23 Dose: 100 mls/hr Morphine Sulfate (Morphine) 1 mg IVP Q4H PRN PRN Reason: Pain, severe (8-10) Last Admin: 06/28/17 01:01 Dose: 1 mg Ondansetron HCl (Zofran Inj) 4 mg IVP Q6 PRN PRN Reason: Nausea/Vomiting Last Admin: 06/28/17 00:50 Dose: 4 mg Pantoprazole Sodium (Protonix Inj) 40 mg IVP DAILY [facility] Last Admin: 06/28/17 10:08 Dose: 40 mg Pneumococcal Polyvalent Vaccine (Pneumovax 23 Vaccine) 0.5 ml IM .ONCE ONE Stop: 06/30/17 10:01 Sucralfate (Carafate Tab) 1 gm PO DAILY [facility] Last Admin: 06/28/17 10:08 Dose: 1 gm Sumatriptan Succinate (Imitrex Tab) 100 mg PO DAILY PRN PRN Reason: Headache Topiramate (Topamax) 25 mg PO DAILY [facility] Last Admin: 06/28/17 10:08 Dose: 25 mg - Labs Labs: 06/28/17 08:21 06/28/17 08:01 PT 13.8 SECONDS (9.7-12.2) H 06/28/17 11:18 INR 1.3 06/28/17 11:18 APTT 44 SECONDS (21-34) H 06/28/17 11:18 Attending/Attestation - Attestation I have personally seen and examined this patient.: Yes I have fully participated in the care of the patient.: Yes I have reviewed all pertinent clinical information, including history, physical exam and plan: Yes Notes (Text): Patient seen, examined, and case discussed with day-time resident. Patient was seen by GI this morning; discussed with GI, recommend for transvaginal US given hx of hysterectomy of 2 months ago, c/w IV fluids. Patient seen this afternoon. Patient reports she is tolerating liquid diet and asking if she can regular diet and reports appetite is back. Patient has completed Pelvis/Transvaginal US today. c/w IV fluids and IV abx F/u stool studies Assessment/Plan 1) Gastroenteritis Colitis * monitor on general medical floor * GI (Dr. Chaparro) on consult-->help appreciated * Ct abdomen/pelvis (06/27/17): distal left partial colectomy reiterated with left lower quadrant colostomy stable. No bowel obstruction evident. Questionable segmental colitis residual left hemicolon. Multiple cysts are identified at the right paracentral/midline pelvis with aggregrate measuring up to 4.8cm greatest dimension. Contracted gallbladder without radiodense cholelithiasis but with limited pericholecystic fluid * Afebrile, vitals stable, no leukocytosis, left shift with bandemia, lactate level f/u * Liquid diet-->advanced this afternoon for soft/dysphagia diet * NS 100cc/hr * Ciprofloxacin 500mg IV Q12H (active since 06/27/17) * Flagyl 500mg IV Q8H (active since 06/27/17) * Morphine 1mg IV Q4H PRN pain * Will f/u blood cultures and f/u stool studes (ova and parasites, leukocytes, culture, C. dif) 2) Transaminitis * monitor liver function tests * hepatitis panel: negative * Possible stress response to colitis 3) History of Colorectal Cancer s/p resection in 2014 (pT1 N0) with LLQ Colostomy * Rectal adenocarcinoma and high grade syplasia per Dr. Chaparro on 11/24/2014 from recal polyp biopsy. Underwent abdominoperineal resection and incidental appendectomy for rectal adenocarcinoma by Dr. Puga. * Resumed Sucralfate 4) Hypertension * Norvasc 5mg PO daily 5) Hx Migraine * Topamax 25mg PO daily * Imitrex 100mg PO qHS PRN 6) Hx Chronic Iron Deficiency 2/2 menorrhagia * Hemoglobin stable * S/P hysterectomy 03/[address] Carrillo ([facility]) * Transvaginal/pelvic (06/28/17): prior hysterectomy. Complex left adenexal cyst 2.1cm greatest dimension. 4.1 cm elongated cyst ~paraovarian cyst. 7) Prophylaxis * GI PPX: Protonix 40mg PO daily * DVT PPX: Lovenox 40 SC daily
[2017-06-28] MEDS ORDERED: Potassium Chloride 20 mEq ER Tab PO ONE (10:00)
[2017-06-28] MEDS: Enoxaparin 40 mg Syringe SC SCH (10:07)
[2017-06-28 11:41] LABS: INR 1.3; PROTHROMBIN TIME 13.8 SECONDS (9.7-12.2)
--- NOTE | 2017-06-28 12:00 | US ---
HISTORY: abnormal findings on ct scan, 4.8 cm aggregation COMPARISON: None available. TECHNIQUE: Transabdominal and transvaginal pelvic ultrasound was performed with longitudinal and transverse images submitted for interpretation. FINDINGS: UTERUS: Prior hysterectomy. ENDOMETRIUM: Prior hysterectomy. CERVIX: Prior hysterectomy. RIGHT OVARY: Measures 5.2 x 2.5 x 4.3 cm. No solid mass. Normal flow. Scattered follicles identified. LEFT OVARY: Measures 5.3 x 2.4 x 4.5 cm. No solid mass. Normal flow. Complex cyst is identified measuring 2.1 x 1.5 x 2.0 cm. FREE FLUID: No significant free fluid noted. OTHER FINDINGS: 4.1 x 1.1 x 2.7 cm cysts identified elongated inferior to the left adnexa compartment appears unclear with this corresponds to the CT finding in the pelvis from CT examination 06/27/2017. This may represent a paraovarian cyst No suspicious color Doppler blood flow related. IMPRESSION: Prior hysterectomy. Complex left adnexal cyst 2.1 cm greatest dimension. 4.1 cm elongated cyst may reflect finding in the pelvis seen in CT exam 06/27/2017. This may represent a paraovarian cyst. The cyst does not appear complicated and otherwise may be postoperative prior hysterectomy, representing a nonspecific, nonaggressive finding.
--- NOTE | 2017-06-28 12:17 | PN ---
DATE: 06/28/2017 This is a 47-year-old female, seen and examined in rounds for GI consultation initially on 06/16/2017 as requested by the ER MD, reexamined again early today with less abdominal pain, no reported nausea and vomiting. No reported active bleeding this morning. The entire chart is reviewed including, but not limited to, the most recent lab and radiology study results, current and previous medication list, current and previous medical events. Case discussed with the staff at length. Official report of CAT scan of the abdomen as well as abdominal x-ray done yesterday at the time of the admission is seen and discussed with the ER physician. No chest pain, palpitation. No reported significant shortness of breath, chills, or fever and the patient's initial blood workup showed normal CBC with increased blood glucose level and elevated AST and ALT with stool for leukocyte was positive but negative for C. difficile. PHYSICAL EXAMINATION: GENERAL: A 47-year-old female, awake, alert, and oriented. Afebrile with pulse of 70, respiratory 20 to 22, blood pressure 124/66. HEENT: Showed pale and dry mucous membrane. Nonicteric sclerae. LUNGS: Few scattered crepitation. Decreased air entry bilaterally. HEART: Positive S1 and S2. ABDOMEN: Soft. Bowel sounds are present. No mass or organomegaly. No rebound tenderness or guarding. Colostomy tube is in place. NEUROLOGIC: No reported new neurological deficit, sensory or motor. IMPRESSION: 1. Acute colitis of unclear etiology. 2. Known history of cancer of the colon, status post partial colon resection and colostomy. 3. Abnormal liver function tests of unclear etiology, to rule out acute viral hepatitis, to rule out possible infection induced abnormal liver function test. 4. Re-exacerbation of peptic ulcer disease. 5. Abnormal CAT scan of the abdomen and pelvis of unclear etiology, rule out possible ovarian cancer versus metastatic lesion. 6. Known history of, but not limited to, hyperlipidemia, hypertension, depression, migraine headache. SUGGESTIONS: 1. Agree with your plan. 2. Cancer markers. 3. Serum lipase and amylase levels. 4. Surgical consultation. 5. Further recommendation to follow. Wayne Moreau MD [facility] # [id number]
[2017-06-29 00:27] VITALS: O2SAT 98
[2017-06-29] MEDS: Ciprofloxacin 400mg/200ml D5W 400 MG/200 ML BAG IVPB SCH ×2 (02:00→13:59)
--- NOTE | 2017-06-29 03:20 | CON ---
DATE: 06/27/2017 LOCATION: 357 A. This is a 47 years old female, very well known case for me, was seen for GI consultation as requested by the ER staff as well as the admitting medical team on 06/27/2017. The entire chart is reviewed including but not limited to the most recent lab and radiology study results, current and previous medication list, current and previous medical events, allergy to medication list as well as all the available current and previous medical records. Case discussed with the ER staff at length. HISTORY OF PRESENT ILLNESS: This is a 47 years old female who was admitted through the emergency room due to diffuse abdominal pain with recurrent episodes of nausea and vomiting for the last several hours prior to her admission without any reported active bleeding with watery semi soft bowel movement through her colostomy tube without reported active bleeding, associated with some chest pressure and mild pain on and off with slight shortness of breath. No reported hematemesis, no reported actual chest pain, palpitation, shortness of breath, chills or fever, but generalized weakness and malaise with loss of appetite recently. After being admitted to the hospital, the patient was found to have normal CBC with increased blood glucose level to 130. Abdominal and pelvic CAT scan was ordered as directed by myself official report is seen. PAST MEDICAL HISTORY: Including but not limited to; 1. Colon polypoid lesion with some neoplastic changes with status post partial left side colectomy and colostomy tube, is in place. 2. Bronchial asthma. 3. Depression with severe anxiety syndrome. 4. Known history of hyperlipidemia with hypertension. 5. Migraine headache. 6. It has to be mentioned that the last colonoscopy and upper endoscopy done on January 2017. FAMILY HISTORY Unknown. SOCIAL HISTORY Denied any cigarette smoking or alcohol intake. CURRENT MEDICATIONS: Medication list post admission reviewed. ALLERGIES TO MEDICATIONS: UNCLEAR. PHYSICAL EXAMINATION: GENERAL: A 56 years old female, awake, alert, oriented, appears to be somewhat anxious and mildly restless, complaining of mild nausea with dyspepsia. VITAL SIGNS: The patient is afebrile with pulse of 86, respiratory rate 20-22, blood pressure 154/84. HEENT: Showed mildly dry oral mucoid membrane. Nonicteric sclerae. LUNGS: Few scattered crepitation. Decreased air entry, mildly and bilaterally. HEART: Positive S1 and S2. ABDOMEN: Soft with [id number] distention with generalized tenderness. No mass or organomegaly. No rebound tenderness or guarding. Colostomy tube is in place with semi-liquid fecal material, no evidence of active bleeding. No evidence of anterior abdominal wall cellulitis. EXTREMITIES: Without edema, clubbing or cyanosis. Peripheral pulses are present to bilaterally. NEUROLOGIC: No reported new neurological deficits, sensory or motor. No new focal deficits bilaterally reported. IMPRESSION: 1. Acute gastroenteritis of unclear etiology. 2. Abnormal CAT scan of the abdomen and pelvis to rule out possible metastatic lesion versus new secondary primary lesion. 3. Reexacerbation of peptic ulcer disease. 4. Rule out pseudomembranous colitis. 5. Past medical history as mentioned above. SUGGESTIONS: 1. Agree with your plan. 2. IV antibiotics including Flagyl IV. 3. Complete stool workup. 4. Rehydration. 5. Zofran IV. Proton pump inhibitors IV. 6. Intravaginal ultrasound. 7. Guaiac all the stool q.d. x3. 8. Repeat cancer markers including CEA and CA 19- 9. 9. Further evaluation to follow. Thank you for letting me participate in your patient's case management. Wayne Moreau MD
[2017-06-29] MEDS: Sodium Chloride 0.9% 1,000 ML IV SCH (04:44)
[2017-06-29] MEDS: metroNIDAZOLE IV 500 mg/100 ml 500 MG/100 ML BAG IVPB SCH ×2 (05:00→11:10)
[2017-06-29 07:34] VITALS: BP 132/86; PULSE 65; TEMP 98.1
[2017-06-29 07:51] LABS: BASO % 0.8 % (0.0-2.0); EOS # 0.1 K/uL (0.0-0.7); EOS % 2.3 % (0.0-4.0); HEMOGLOBIN 12.7 g/dL (11.0-16.0); LYMPH # 1.3 K/uL (1.0-4.3); LYMPH % 26.2 % (20.0-40.0); MEAN CELL VOLUME 84.8 fL (81.0-99.0); MEAN CORPUSCULAR HEMOGLOBIN 29.1 pg (27.0-31.0); MEAN CORPUSCULAR HGB CONC 34.3 g/dL (33.0-37.0); MEAN PLATELET VOLUME 10.5 fL (7.2-11.7); MONO # 0.4 K/uL (0.0-0.8); MONO % 8.5 % (0.0-10.0); NEUT # 3.1 K/uL (1.8-7.0); NEUT % 62.2 % (50.0-75.0); NRBC % 0.1 % (0.0-2.0); RBC 4.38 Mil/uL (3.80-5.20); RED CELL DISTRIBUTION WIDTH 14.7 % (11.5-14.5)
--- NOTE | 2017-06-29 09:02 | CP.PCM.DIS ---
<Ines Garcia - Last Filed: 06/29/17 11:08> Provider - Provider Date of Admission: 06/27/17 11:57 Attending physician: Mary Kate Clemente DO Time Spent in preparation of Discharge (in minutes): 55 Hospital Course - Lab Results Lab Results: Micro Results 06/27/17 13:38 Blood Blood Culture - Preliminary NO GROWTH AFTER 24 HOURS 06/27/17 13:38 Blood Blood Culture - Preliminary NO GROWTH AFTER 24 HOURS 06/27/17 Unknown Stool Stool Culture - Preliminary LACTOSE INSTRUCTOR FLYING, SUB SELENITE BROTH. Most Recent Lab Values WBC 5.0 K/uL (4.8-10.8) 06/29/17 07:43 RBC 4.38 Mil/uL (3.80-5.20) 06/29/17 07:43 Hgb 12.7 g/dL (11.0-16.0) 06/29/17 07:43 Hct 37.1 % (34.0-47.0) 06/29/17 07:43 MCV 84.8 fL (81.0-99.0) 06/29/17 07:43 MCH 29.1 pg (27.0-31.0) 06/29/17 07:43 MCHC 34.3 g/dL (33.0-37.0) 06/29/17 07:43 RDW 14.7 % (11.5-14.5) H 06/29/17 07:43 Plt Count 190 K/uL (130-400) 06/29/17 07:43 MPV 10.5 fL (7.2-11.7) 06/29/17 07:43 Neut % (Auto) 62.2 % (50.0-75.0) 06/29/17 07:43 Lymph % (Auto) 26.2 % (20.0-40.0) 06/29/17 07:43 Garvin % (Auto) 8.5 % (0.0-10.0) 06/29/17 07:43 Eos % (Auto) 2.3 % (0.0-4.0) 06/29/17 07:43 Baso % (Auto) 0.8 % (0.0-2.0) 06/29/17 07:43 Neut # (Auto) 3.1 K/uL (1.8-7.0) 06/29/17 07:43 Lymph # (Auto) 1.3 K/uL (1.0-4.3) 06/29/17 07:43 Garvin # (Auto) 0.4 K/uL (0.0-0.8) 06/29/17 07:43 Eos # (Auto) 0.1 K/uL (0.0-0.7) 06/29/17 07:43 Baso # (Auto) 0.0 K/uL (0.0-0.2) 06/29/17 07:43 Neutrophils % (Manual) 76 % (50-75) H 06/27/17 07:46 Band Neutrophils % 13 % (0-2) H* 06/27/17 07:46 Lymphocytes % (Manual) 8 % (20-40) L 06/27/17 07:46 Monocytes % (Manual) 1 % (0-10) 06/27/17 07:46 Eosinophils % (Manual) 1 % (0-4) 06/27/17 07:46 Metamyelocytes % 1 % (0-0) H 06/27/17 07:46 Platelet Estimate Normal (NORMAL) 06/27/17 07:46 Large Platelets Present 06/27/17 07:46 Anisocytosis (manual) Slight 06/27/17 07:46 PT 13.8 SECONDS (9.7-12.2) H 06/28/17 11:18 INR 1.3 06/28/17 11:18 APTT 44 SECONDS (21-34) H 06/28/17 11:18 Sodium 143 mmol/L (132-148) 06/28/17 08:01 Potassium 3.5 mmol/L (3.6-5.2) L 06/28/17 08:01 Chloride 110 mmol/L (98-107) H 06/28/17 08:01 Carbon Dioxide 26 mmol/L (22-30) 06/28/17 08:01 Anion Gap 11 (10-20) 06/28/17 08:01 BUN 4 mg/dL (7-17) L 06/28/17 08:01 Creatinine 0.8 mg/dL (0.7-1.2) 06/28/17 08:01 Est GFR ( Amer) > 60 06/28/17 08:01 Est GFR (Non-Af Amer) > 60 06/28/17 08:01 Random Glucose 83 mg/dL (65-105) 06/28/17 08:01 Lactic Acid 1.3 mmol/L (0.7-2.1) 06/27/17 17:10 Calcium 8.1 mg/dl (8.6-10.4) L 06/28/17 08:01 Magnesium 1.8 mg/dL (1.6-2.3) 06/28/17 08:01 Total Bilirubin 0.7 mg/dL (0.2-1.3) 06/28/17 08:01 AST 216 U/L (14-36) H D 06/28/17 08:01 ALT 327 U/L (9-52) H D 06/28/17 08:01 Alkaline Phosphatase 123 U/L (38-126) 06/28/17 08:01 Total Creatine Kinase 118 U/L (30-135) 06/27/17 07:46 CK-MB (Mass) 0.28 ng/mL (0.0-3.38) 06/27/17 07:46 Troponin I 0.0170 ng/mL (0.00-0.120) 06/27/17 07:46 Total Protein 6.6 g/dL (6.3-8.3) 06/28/17 08:01 Albumin 3.2 g/dL (3.5-5.0) L D 06/28/17 08:01 Globulin 3.4 gm/dL (2.2-3.9) 06/28/17 08:01 Albumin/Globulin Ratio 1.0 (1.0-2.1) 06/28/17 08:01 Lipase 92 U/L (23-300) 06/27/17 07:46 Alpha Fetoprotein 2.0 ng/mL (0.0-7.5) 06/28/17 11:18 Carcinoembryonic Ag 1.6 ng/mL (0-3.0) 06/28/17 11:18 CA 125 Antigen 10.6 U/mL (0-35) 06/28/17 11:18 Urine Color Yellow (YELLOW) 06/27/17 08:02 Urine Clarity Clear (Clear) 06/27/17 08:02 Urine pH 7.0 (5.0-8.0) 06/27/17 08:02 Ur Specific [place] 1.012 (1.003-1.030) 06/27/17 08:02 Urine Protein Negative mg/dL (NEGATIVE) 06/27/17 08:02 Urine Glucose (UA) Normal mg/dL (Normal) 06/27/17 08:02 Urine Ketones Negative mg/dL (NEGATIVE) 06/27/17 08:02 Urine Blood Trace (NEGATIVE) 06/27/17 08:02 Urine Nitrate Negative (NEGATIVE) 06/27/17 08:02 Urine Bilirubin Negative (NEGATIVE) 06/27/17 08:02 Urine Urobilinogen Normal mg/dL (0.2-1.0) 06/27/17 08:02 Ur Leukocyte Esterase Neg Toi/uL (Negative) 06/27/17 08:02 Urine WBC (Auto) < 1 /hpf (0-5) 06/27/17 08:02 Urine RBC (Auto) 2 /hpf (0-3) 06/27/17 08:02 Ur Squamous Epith Cells < 1 /hpf (0-5) 06/27/17 08:02 Stool Leukocytes, Qual Positive (NEGATIVE) H 06/27/17 13:38 C. difficile Ag & Toxin Negative (NEGATIVE) 06/27/17 13:38 Hepatitis A IgM Ab Negative (NEGATIVE) 06/28/17 08:01 Hep Bs Antigen Negative (NEGATIVE) 06/28/17 08:01 Hep B Core IgM Ab Negative (NEGATIVE) 06/28/17 08:01 Hepatitis C Antibody Negative (NEGATIVE) 06/28/17 08:01 - Hospital Course Hospital Course: Upon Admission: CC: nausea, vomiting, and abdominal pain < 12 hours HPI: This is a 47 year old female with PMHx as listed below, who presents to the ED with nausea, vomiting, abdominal pain for about 12 hours. She reports eating her usual dinner last night, when she started to experience nausea, vomiting, and her colostomy bag had liquid output requiring her to change her bag 3 times prior to admission. Admitted to chills, nausea, vomiting, abdominal pain and loose stool in colostomy bag. She reported seeing contents of food that she ate more than a week prior. She had 3-4 episodes of vomiting, with last episode being bilious. After changing her colostomy bag the 3rd time she had mucous output. Denied sick contacts, recent travel. Fiance has been eating similar meals/ food as patient, did not get sick. Denied fever, headache, chest pain, SOB, or urinary symptoms. PMHx: Hx of Colorectal Adenocarcinoma s/p resection with permanent colostomy, HTN, Migraine, Iron Deficiency Anemia 2/2 menorrhagia PSHx: Appendectomy and abdominoperineal resection for colon cancer resection, hysterectomy Meds: As per APR All: NKDA SHx: Denied alcohol, tobacco, or illicit drug use FHx: Multiple malignancies on both mother and father's side; colon, breast PMD: Dr. Cornejo Heme/ Onc: Dr. Luciano Cortes GI: Dr. Chaparro Neuro: Dr. Pradeep Paz Throughout Hospital Course: This is a 47 year old female with PMHx of Hx of Colorectal Adenocarcinoma s/p resection with permanent colostomy, HTN, Migraine, Iron Deficiency Anemia 2/2 menorrhagia s/p hysterectomy 03/2017 , who presents to the ED with nausea, vomiting, abdominal pain for about 12 hours, diagnosed with colitis. Colitis - Afebrile, vitals stable, no leukocytosis, left shift with bandemia, lactate level f/u - CT abdomen & pelvis: colitis in the left hemicolon Management: - NPO - advanced diet - tolerating regular diet - NS @ 100cc/hr - Cipro, Flagyl - Protonix IVP, Morphine PRN for pain - BC, Stool studies - negative Transaminitis - T.bili WNL - AST/ALT: 317/116 - Will continue to monitor History of Colorectal Cancer s/p resection in 2014 (pT1 N0) with LLQ Colostomy - Rectal adnocarcinoma and high grade syplasia per Dr. Chaparro on 11/24/2014 from recal polyp biopsy. Underwent abdominoperineal resection and incidental appendectomy for rectal adenocarcinoma by Dr. Puga. - Resumed Sucralfate Hx HTN -Restarted home medication: Norvasc Hx Migraine - Restarted home medications Topamax, Imitrex Hx Chronic Iron Deficiency 2/2 menorrhagia - Hemoglobin stable - S/P hysterectomy 03/[address] Berg Patient is to continue Cipro and Flagyl x 8 days and probiotic for 40 days. She will follow up with Dr. Chaparro in 1-2 weeks. She will follow up with Dr. Nguyen ( [employer]) during her scheduled appointment in July. Please review EMR for full record, as this is a brief summary. Discharge Exam - Additional Findings Additional findings: - Constitutional Appears: No Acute Distress - Head Exam Head Exam: NORMAL INSPECTION, NORMOCEPHALIC - Eye Exam Eye Exam: EOMI, Normal appearance, PERRL Pupil Exam: NORMAL ACCOMODATION - ENT Exam ENT Exam: Mucous Membranes Moist, Normal Exam - Respiratory Exam Respiratory Exam: Clear to Auscultation Bilateral, NORMAL BREATHING PATTERN. absent: Decreased Breath Sounds, Wheezes - Cardiovascular Exam Cardiovascular Exam: REGULAR RHYTHM, RRR - GI/Abdominal Exam GI & Abdominal Exam: Soft, normal BS absent: Distended, Guarding, Hernia, TTP Additional comments: stoma pink, bag some formed stool, no blood noted. Colostomy well maintained - Rectal Exam Rectal Exam: Deferred - Extremities Exam Extremities exam: Positive for: normal inspection, pedal pulses present. Negative for: pedal edema, tenderness - Neurological Exam Neurological exam: Alert, CN II-XII Intact, Oriented x3 - Psychiatric Exam Psychiatric exam: Normal Affect, Normal Mood - Skin Skin Exam: Dry, Intact, Normal Color, Warm Discharge Plan - Discharge Medications Prescriptions: Ciprofloxacin [Cipro] 500 mg PO BID #16 tab Metronidazole [Flagyl] 500 mg PO TID #24 tab Saccharomyces Boulardi [Florastor] 250 mg PO BID #80 cap - Follow Up Plan Condition: STABLE Disposition: HOME/ ROUTINE Instructions: Diarrhea in Adolescents and Adults, Ciprofloxacin (Systemic), Leukocytosis (DC) Additional Instructions: You are to continue your home medications as instructed. You will also be taking 3 new medications: Ciprofloxacin 500mg by mouth twice a day for 8 days and Flagyl 500mg by mouth 3 times a day for 8 days. Florastor 1 tab twice a day (2 hours before taking any antibiotics) for 40 days total. You will follow up with Dr. Chaparro in 1-2 weeks. You will follow up with Dr. Nguyen during your scheduled appointment in July, please bring your copy of your transvaginal ultrasound so he is aware of a complex cyst that was seen. Continue with a diet high in fiber and advance it as you tolerate (starting with liquids and working your way up). Please take care and be well. Referrals: Wayne Chaparro [Staff Provider] - Tramaine Kaufman MD [Staff Provider] - <Tremaine Walker - Last Filed: 06/29/17 19:56> Provider - Provider Date of Admission: 06/27/17 11:57 Attending physician: Tremaine Walker MD Time Spent in preparation of Discharge (in minutes): 40 Hospital Course - Lab Results Lab Results: Micro Results 06/27/17 13:38 Blood Blood Culture - Preliminary NO GROWTH AFTER 48 HOURS 06/27/17 13:38 Blood Blood Culture - Preliminary NO GROWTH AFTER 48 HOURS 06/27/17 Unknown Stool Stool Culture - Final NO SALMONELLA, SHIGELLA OR CAMPYLOBACTER ISOLATED. Most Recent Lab Values WBC 5.0 K/uL (4.8-10.8) 06/29/17 07:43 RBC 4.38 Mil/uL (3.80-5.20) 06/29/17 07:43 Hgb 12.7 g/dL (11.0-16.0) 06/29/17 07:43 Hct 37.1 % (34.0-47.0) 06/29/17 07:43 MCV 84.8 fL (81.0-99.0) 06/29/17 07:43 MCH 29.1 pg (27.0-31.0) 06/29/17 07:43 MCHC 34.3 g/dL (33.0-37.0) 06/29/17 07:43 RDW 14.7 % (11.5-14.5) H 06/29/17 07:43 Plt Count 190 K/uL (130-400) 06/29/17 07:43 MPV 10.5 fL (7.2-11.7) 06/29/17 07:43 Neut % (Auto) 62.2 % (50.0-75.0) 06/29/17 07:43 Lymph % (Auto) 26.2 % (20.0-40.0) 06/29/17 07:43 Garvin % (Auto) 8.5 % (0.0-10.0) 06/29/17 07:43 Eos % (Auto) 2.3 % (0.0-4.0) 06/29/17 07:43 Baso % (Auto) 0.8 % (0.0-2.0) 06/29/17 07:43 Neut # (Auto) 3.1 K/uL (1.8-7.0) 06/29/17 07:43 Lymph # (Auto) 1.3 K/uL (1.0-4.3) 06/29/17 07:43 Garvin # (Auto) 0.4 K/uL (0.0-0.8) 06/29/17 07:43 Eos # (Auto) 0.1 K/uL (0.0-0.7) 06/29/17 07:43 Baso # (Auto) 0.0 K/uL (0.0-0.2) 06/29/17 07:43 Neutrophils % (Manual) 76 % (50-75) H 06/27/17 07:46 Band Neutrophils % 13 % (0-2) H* 06/27/17 07:46 Lymphocytes % (Manual) 8 % (20-40) L 06/27/17 07:46 Monocytes % (Manual) 1 % (0-10) 06/27/17 07:46 Eosinophils % (Manual) 1 % (0-4) 06/27/17 07:46 Metamyelocytes % 1 % (0-0) H 06/27/17 07:46 Platelet Estimate Normal (NORMAL) 06/27/17 07:46 Large Platelets Present 06/27/17 07:46 Anisocytosis (manual) Slight 06/27/17 07:46 PT 13.8 SECONDS (9.7-12.2) H 06/28/17 11:18 INR 1.3 06/28/17 11:18 APTT 44 SECONDS (21-34) H 06/28/17 11:18 Sodium 145 mmol/L (132-148) 06/29/17 07:43 Potassium 4.0 mmol/L (3.6-5.2) 06/29/17 07:43 Chloride 109 mmol/L (98-107) H 06/29/17 07:43 Carbon Dioxide 22 mmol/L (22-30) 06/29/17 07:43 Anion Gap 17 (10-20) 06/29/17 07:43 BUN 5 mg/dL (7-17) L 06/29/17 07:43 Creatinine 0.8 mg/dL (0.7-1.2) 06/29/17 07:43 Est GFR ( Amer) > 60 06/29/17 07:43 Est GFR (Non-Af Amer) > 60 06/29/17 07:43 Random Glucose 82 mg/dL (65-105) 06/29/17 07:43 Lactic Acid 1.3 mmol/L (0.7-2.1) 06/27/17 17:10 Calcium 9.0 mg/dl (8.6-10.4) 06/29/17 07:43 Magnesium 1.8 mg/dL (1.6-2.3) 06/28/17 08:01 Total Bilirubin 0.7 mg/dL (0.2-1.3) 06/29/17 07:43 AST 91 U/L (14-36) H D 06/29/17 07:43 ALT 240 U/L (9-52) H D 06/29/17 07:43 Alkaline Phosphatase 130 U/L (38-126) H 06/29/17 07:43 Total Creatine Kinase 118 U/L (30-135) 06/27/17 07:46 CK-MB (Mass) 0.28 ng/mL (0.0-3.38) 06/27/17 07:46 Troponin I 0.0170 ng/mL (0.00-0.120) 06/27/17 07:46 Total Protein 7.8 g/dL (6.3-8.3) 06/29/17 07:43 Albumin 3.7 g/dL (3.5-5.0) 06/29/17 07:43 Globulin 4.1 gm/dL (2.2-3.9) H 06/29/17 07:43 Albumin/Globulin Ratio 0.9 (1.0-2.1) L 06/29/17 07:43 Amylase 111 U/L (30-110) H 06/29/17 07:43 Lipase 111 U/L (23-300) 06/29/17 07:43 Alpha Fetoprotein 2.0 ng/mL (0.0-7.5) 06/28/17 11:18 Carcinoembryonic Ag 1.6 ng/mL (0-3.0) 06/28/17 11:18 CA 125 Antigen 10.6 U/mL (0-35) 06/28/17 11:18 Urine Color Yellow (YELLOW) 06/27/17 08:02 Urine Clarity Clear (Clear) 06/27/17 08:02 Urine pH 7.0 (5.0-8.0) 06/27/17 08:02 Ur Specific [place] 1.012 (1.003-1.030) 06/27/17 08:02 Urine Protein Negative mg/dL (NEGATIVE) 06/27/17 08:02 Urine Glucose (UA) Normal mg/dL (Normal) 06/27/17 08:02 Urine Ketones Negative mg/dL (NEGATIVE) 06/27/17 08:02 Urine Blood Trace (NEGATIVE) 06/27/17 08:02 Urine Nitrate Negative (NEGATIVE) 06/27/17 08:02 Urine Bilirubin Negative (NEGATIVE) 06/27/17 08:02 Urine Urobilinogen Normal mg/dL (0.2-1.0) 06/27/17 08:02 Ur Leukocyte Esterase Neg Toi/uL (Negative) 06/27/17 08:02 Urine WBC (Auto) < 1 /hpf (0-5) 06/27/17 08:02 Urine RBC (Auto) 2 /hpf (0-3) 06/27/17 08:02 Ur Squamous Epith Cells < 1 /hpf (0-5) 06/27/17 08:02 Stool Leukocytes, Qual Positive (NEGATIVE) H 06/27/17 13:38 C. difficile Ag & Toxin Negative (NEGATIVE) 06/27/17 13:38 Hepatitis A IgM Ab Negative (NEGATIVE) 06/28/17 08:01 Hep Bs Antigen Negative (NEGATIVE) 06/28/17 08:01 Hep B Core IgM Ab Negative (NEGATIVE) 06/28/17 08:01 Hepatitis C Antibody Negative (NEGATIVE) 06/28/17 08:01 Attending/Attestation - Attestation I have personally seen and examined this patient.: Yes I have fully participated in the care of the patient.: Yes I have reviewed all pertinent clinical information, including history, physical exam and plan: Yes Notes (Text): 06/29/17 19:55 Patient was seen and examined shortly after resident. Discharge instructions/medications were gone over with the resident. Tremaine Walker D.O.
[2017-06-29] MEDS: Enoxaparin 40 mg Syringe SC SCH (09:35)
[2017-06-29 09:54] LABS: ALB/GLOB RATIO 0.9 (1.0-2.1); ALBUMIN 3.7 g/dL (3.5-5.0); ALT/SGPT 240 U/L (9-52); AMYLASE 111 U/L (30-110); AST/SGOT 91 U/L (14-36); BLOOD UREA NITROGEN 5 mg/dL (7-17); GFR AFRICAN-AMERICAN > 60; GFR NON-AFRICAN AMERICAN > 60; LIPASE 111 U/L (23-300)
--- NOTE | 2017-06-29 13:24 | PN ---
DATE: 06/29/2017 LOCATION: 357, bed A SUBJECTIVE: This is a 47-year-old female seen and examined in rounds with less abdominal pain, but poor oral intake, with loss of appetite with period of mild nausea. No active bleeding and no reported vomiting. No chest pain or palpitation or chills or fever this morning. The entire chart is reviewed including, but not limited to, the most recent lab and radiology study results, current and previous medication list, current and previous medical events. Today's lab showed normal CBC, but yesterday's lab showed elevated ALT and AST with low albumin. Hepatitis profile reported to be within normal limit, negative. C. diff in the stool is negative, but still leukocyte is positive. PHYSICAL EXAMINATION: GENERAL: A 47-year-old female. VITAL SIGNS: Afebrile with pulse of 60, respiratory rate 20 to 22, blood pressure of 130/80. HEENT: Showed pale, dry oral mucous membrane. Nonicteric sclerae. LUNGS: A few scattered crepitation. Decreased air entry at bases. HEART: Positive S1 and S2. ABDOMEN: Soft with mild distention and mild generalized tenderness. No mass or organomegaly. No rebound tenderness or guarding. Colostomy tube is in place. EXTREMITIES: Without significant edema, clubbing, or cyanosis. NEUROLOGIC: No new reported neurological deficit, sensory or motor. IMPRESSION: 1. Acute colitis with diarrhea, improving clinically. 2. Known history of colon cancer with status post partial colon resection with colostomy in place. 3. Diarrhea secondary to above. 4. Re-exacerbation of peptic ulcer disease with recurrent nausea and vomiting. 5. Abnormal liver function tests, most likely secondary to infectious process. 6. Abnormal CAT scan of the abdomen and pelvis. The patient will need intravaginal ultrasound. SUGGESTIONS: 1. Continue current management. 2. Rehydration. 3. Pending on the outcome of the intravaginal ultrasound, more recommendations to follow. The patient may need COATING ENGINEER evaluation. Wayne Moreau MD
[2017-06-30] MEDS ORDERED: Pneumococcal 23-Valent Vaccine IM ONE (10:00)
== END 2017-06-29 15:00 | disposition home or self-care (01) | DRG 384 ==
LOC: C.ER 06:43 → C.9E 11:57 → C.3T 12:39
PROVIDERS: ADMIT Family Medicine; ATTEND Family Medicine
DX: K27.9 Peptic ulcer, site unspecified, unspecified as acute or chronic, without hemorrhage or perforation (principal); K52.9 Noninfective gastroenteritis and colitis, unspecified; I10 Essential (primary) hypertension; G43.909 Migraine, unspecified, not intractable, without status migrainosus; E78.5 Hyperlipidemia, unspecified; D50.0 Iron deficiency anemia secondary to blood loss (chronic); J45.909 Unspecified asthma, uncomplicated; N83.209 Unspecified ovarian cyst, unspecified side; N92.0 Excessive and frequent menstruation with regular cycle; Z85.048 Personal history of other malignant neoplasm of rectum, rectosigmoid junction, and anus; Z93.3 Colostomy status

== ENCOUNTER 2017-08-18 07:18 | Emergency (ER) | payer MEDICAID, OTHER ==
[2017-08-18 07:18] VITALS: BMI 24.0
[2017-08-18 07:37] VITALS: TEMP 97.6; O2SAT 100
[2017-08-18] MEDS ORDERED: Iohexol 240 (50 ml) PO STA (08:28)
[2017-08-18] MEDS ORDERED: Sodium Chloride 0.9% 1,000 ML IV ONE (08:28)
[2017-08-18 09:01] LABS: BASO % 0.4 % (0.0-2.0); EOS % 0.2 % (0.0-4.0); HEMOGLOBIN 14.1 g/dL (11.0-16.0); LYMPH # 0.3 K/uL (1.0-4.3); LYMPH % 2.8 % (20.0-40.0); MEAN CELL VOLUME 84.8 fL (81.0-99.0); MEAN CORPUSCULAR HEMOGLOBIN 28.7 pg (27.0-31.0); MEAN CORPUSCULAR HGB CONC 33.8 g/dL (33.0-37.0); MEAN PLATELET VOLUME 10.7 fL (7.2-11.7); MONO # 0.4 K/uL (0.0-0.8); MONO % 3.8 % (0.0-10.0); NEUT # 9.3 K/uL (1.8-7.0); NEUT % 92.8 % (50.0-75.0); PLATELET COUNT 145 K/uL (130-400); RED CELL DISTRIBUTION WIDTH 15.7 % (11.5-14.5)
[2017-08-18] MEDS ORDERED: Iohexol 240 (50 ml) ONE (09:04)
[2017-08-18] MEDS ORDERED: Sodium Chloride 0.9% 1,000 ML ONE (09:05)
[2017-08-18 09:12] VITALS: RESP 18
--- NOTE | 2017-08-18 09:14 | C.PDOC ---
History Of Present Illness 47-year-old female, presents to the emergency department with complaints of chest tightness, that she developed this morning. She used her asthma pump at home with minimal relief. Patient states she had nausea overnight, associated with episodes of non-bloody/non-bilious vomiting, and diffuse abdominal pain. Patient denies fever, chills, dizziness, chest pain, or any other associated symptoms. No other complaints at this time. Time Seen by Provider: 08/18/17 07:24 Chief Complaint (Nursing): Chest Pain History Per: Patient History/Exam Limitations: no limitations Current Symptoms Are (Timing): Still Present Severity: Moderate Past Medical History Reviewed: Historical Data, Nursing Documentation, Vital Signs Vital Signs: Last Vital Signs Temp 97.6 F 08/18/17 07:36 Pulse 78 08/18/17 12:25 Resp 18 08/18/17 12:25 BP 136/81 08/18/17 12:25 Pulse Ox 100 08/18/17 12:25 - Medical History PMH: Anemia, Anxiety, Asthma, Colonic Polyps, Depression, HTN, Hypercholesterolemia, Migraine Surgical History: Endoscopy - [facility] Procedures BYPASS SIGMOID COLON TO CUTANEOUS, OPEN APPROACH (01/15/15) EXCISION OF ASCENDING COLON, ENDO, DIAGN (01/31/17) EXCISION OF ESOPHAGUS, ENDO, DIAGN (01/31/17) EXCISION OF RECTUM, ENDO, DIAGN (11/23/14) EXCISION OF RECTUM, VIA NATURAL OR ARTIFICIAL OPENING (11/23/14) EXCISION OF SIGMOID COLON, OPEN APPROACH (01/15/15) EXCISION OF STOMACH, ENDO, DIAGN (01/31/17) RESECTION OF APPENDIX, OPEN APPROACH (01/15/15) RESECTION OF RECTUM, OPEN APPROACH (01/15/15) Family History: States: No Known Family Hx - Social History Hx Alcohol Use: No Hx Substance Use: No Review Of Systems Constitutional: Positive for: Chills, Weakness. Negative for: Fever Cardiovascular: Positive for: Other (chest tightness). Negative for: Chest Pain , Palpitations Respiratory: Negative for: Shortness of Breath Gastrointestinal: Positive for: Nausea, Vomiting, Abdominal Pain Musculoskeletal: Negative for: Back Pain Skin: Negative for: Rash Neurological: Negative for: Weakness, Numbness, Headache, Dizziness Physical Exam - Physical Exam Appears: Non-toxic, No Acute Distress Skin: Normal Color, Warm, Dry, No Rash Head: Atraumatic, Normacephalic Eye(s): bilateral: Normal Inspection, PERRL, EOMI Nose: Normal Throat: Normal Neck: Normal Cardiovascular: Rhythm Regular Respiratory: Normal Breath Sounds Gastrointestinal/Abdominal: Soft, Tenderness (diffuse, mild), No Guarding, No Rebound, Other (colostomy in place, normal appearing stoma. ) Back: Normal Inspection Extremity: Normal ROM, No Deformity, No Swelling Neurological/Psych: Oriented x3, Normal Speech ED Course And Treatment - Laboratory Results Result Diagrams: 08/18/17 08:57 08/18/17 08:57 O2 Sat by Pulse Oximetry: 100 (RA) Pulse Ox Interpretation: Normal Medical Decision Making Medical Decision Making: Labs and CT results are negative. And results were discussed with the patient. The patient reports that she was had chest pain secondary to vomiting and has no chest pain now. On re-exam, the patient reports improvement of symptoms. Lungs are CTA, heart is RRR, abdomen is soft, non-tender and the patient is tolerating PO well. Follow up with the medical doctor within 1-2 days. Return if worsened. Disposition - Disposition Referrals: Pako Cornejo MD [Medical Doctor] - Disposition: HOME/ ROUTINE Disposition Time: 13:10 Condition: GOOD Additional Instructions: Follow up with the medical doctor within 1-2 days. Return if worsened. Prescriptions: Famotidine [Pepcid] 20 mg PO BID #20 tab Instructions: Nausea and Vomiting, Adult (DC) Forms: [facility] [employer] [facility] (Gibraltarian) - Clinical Impression Clinical Impression: Abdominal pain, Vomiting, Chest pain - Scribe Statement The provider has reviewed the documentation as recorded by the Scribe (Tasha Lucia) All medical record entries made by the Scribe were at my direction and personally dictated by me. I have reviewed the chart and agree that the record accurately reflects my personal performance of the history, physical exam, medical decision making, and the department course for this patient. I have also personally directed, reviewed, and agree with the discharge instructions and disposition.
--- NOTE | 2017-08-18 09:37 | RAD ---
Chest x-ray single frontal view History: Chest pain. Comparison: 11/23/2014 Findings: No focal infiltrate or effusion. Heart size within normal limits. Impression: No focal infiltrate or effusion.
[2017-08-18 09:40] LABS: ALB/GLOB RATIO 1.1 (1.0-2.1); ALBUMIN 4.4 g/dL (3.5-5.0); CALCIUM 9.1 mg/dl (8.6-10.4); GFR AFRICAN-AMERICAN > 60; GFR NON-AFRICAN AMERICAN > 60; LIPASE 101 U/L (23-300)
[2017-08-18 09:45] LABS: ALT/SGPT 276 U/L (9-52); AST/SGOT 696 U/L (14-36); BANDS 4 % (0-2); BLOOD UREA NITROGEN 10 mg/dL (7-17); LYMPHOCYTE 5 % (20-40); MONOCYTE 3 % (0-10); NEUTROPHIL 88 % (50-75); PLATELET ESTIMATE NORMAL (NORMAL); TOTAL CELLS COUNTED 100
[2017-08-18 09:46] LABS: ANISOCYTOSIS SLIGHT
[2017-08-18 09:47] LABS: CK-MB < 0.22 ng/mL (0.0-3.38)
[2017-08-18] MEDS ORDERED: Iodixanol 320 MG/ML 100 ML BOTTLE IV ONE (11:03)
--- NOTE | 2017-08-18 11:49 | CT ---
PROCEDURE: CT Abdomen and Pelvis with contrast HISTORY: hx of colostomy, vomiting, abd pain COMPARISON: CT scan of the abdomen and pelvis dated 06/27/2017. TECHNIQUE: Contrast dose: 100 mL Visipaque 320 Radiation dose: Total exam DLP = 321.8 mGy-cm. This CT exam was performed using one or more of the following dose reduction techniques: Automated exposure control, adjustment of the mA and/or kV according to patient size, and/or use of iterative reconstruction technique. FINDINGS: LOWER THORAX: Stable 5 mm left lower lobe subpleural nodule (series 3, image 1). No focal consolidation or pleural effusion. Heart size normal. LIVER: Stable 5 mm too small to characterize hypodensity in the subcapsular medial right hepatic lobe (series 3, image 31). Stable mild periportal edema. No ductal dilatation. GALLBLADDER AND BILE DUCTS: Contracted gallbladder with stable gallbladder wall edema. PANCREAS: Unremarkable. No gross lesion or ductal dilatation. SPLEEN: Unremarkable. ADRENALS: Unremarkable. No mass. KIDNEYS AND URETERS: Unremarkable. No hydronephrosis. No solid mass. VASCULATURE: Unremarkable. No aortic aneurysm. BOWEL: Prior distal left colectomy with left lower quadrant colostomy. No obstruction. No gross mural thickening. APPENDIX: No findings to suggest acute appendicitis. PERITONEUM: Stable appearance of soft tissue density surrounding cystic structures in the deep pelvis. No free fluid. No free air. LYMPH NODES: Unremarkable. No enlarged lymph nodes. BLADDER: Unremarkable. REPRODUCTIVE: Prior hysterectomy. BONES: No acute fracture. OTHER FINDINGS: Medial left breast nodule with surgical clip redemonstrated. IMPRESSION: No acute abdominal pelvic pathology. Stable findings as above. No significant interval change.
[2017-08-18 12:25] VITALS: BP 136/81; PULSE 78
--- NOTE | 2017-08-20 21:15 | CARD ---
APPROVED REPORT EKG Measurement Heart [id number] ID [id number] <Conclusion> Poor data quality, interpretation may be adversely affected Normal sinus rhythm Biatrial enlargement Abnormal ECG
== END 2017-08-18 13:46 | disposition home or self-care (01) ==
LOC: C.ER 07:18
DX: R07.9 Chest pain, unspecified (principal); R10.9 Unspecified abdominal pain; R11.10 Vomiting, unspecified
CPT/HCPCS: 71045; 74177; 80053; 83690; 84484; 85025; 93005; 96361; 96374; 96375; 99285; C9113; J2270; J2405; J7030; Q9966; Q9967

== ENCOUNTER 2017-09-06 00:29 | Emergency (ER) | payer OTHER ==
[2017-09-06 00:29] VITALS: BMI 24.0
[2017-09-06 00:35] VITALS: TEMP 98.1; O2SAT 100
--- NOTE | 2017-09-06 01:21 | C.PDOC ---
History Of Present Illness 47 year old female presents to the ED for evaluation of a foreign body in her left ear from tonight. . Patient notes the cotton from a Q-tip is lodged in her ear canal. She denies any other complaints at this time. Time Seen by Provider: 09/06/17 00:45 Chief Complaint (Nursing): Foreign Body History Per: Patient History/Exam Limitations: no limitations Onset/Duration Of Symptoms: Hrs Current Symptoms Are (Timing): Still Present Additional History Per: Patient Past Medical History Reviewed: Historical Data, Nursing Documentation, Vital Signs Vital Signs: Last Vital Signs Temp 98.1 F 09/06/17 00:35 Pulse 67 09/06/17 01:29 Resp 12 09/06/17 01:29 BP 132/75 09/06/17 01:29 Pulse Ox 100 09/06/17 01:41 - Medical History PMH: Anemia, Anxiety, Asthma, Colonic Polyps, Depression, HTN, Hypercholesterolemia, Migraine Denies: Atrial Fibrillation, Bronchitis, Cardia Arrhythmia, CHF, COPD, Emphysema, Mitral Valve Prolapse, Peripheral Edema, Pneumonia, Pulmonary Embolism, Chronic Kidney Disease, Sleep Apnea Surgical History: Endoscopy - [facility] Procedures BYPASS SIGMOID COLON TO CUTANEOUS, OPEN APPROACH (01/15/15) EXCISION OF ASCENDING COLON, ENDO, DIAGN (01/31/17) EXCISION OF ESOPHAGUS, ENDO, DIAGN (01/31/17) EXCISION OF RECTUM, ENDO, DIAGN (11/23/14) EXCISION OF RECTUM, VIA NATURAL OR ARTIFICIAL OPENING (11/23/14) EXCISION OF SIGMOID COLON, OPEN APPROACH (01/15/15) EXCISION OF STOMACH, ENDO, DIAGN (01/31/17) RESECTION OF APPENDIX, OPEN APPROACH (01/15/15) RESECTION OF RECTUM, OPEN APPROACH (01/15/15) Family History: States: Unknown Family Hx - Social History Hx Alcohol Use: No Hx Substance Use: No Review Of Systems ENT: Positive for: Other (foreign body in left ear ) Physical Exam - Physical Exam Appears: Non-toxic, No Acute Distress Skin: Normal Color, Warm, Dry Head: Atraumatic, Normacephalic Ear(s): Left: Other (small, white foreign body noted), Right: Normal Neurological/Psych: Oriented x3, Normal Speech, Normal Cognition ED Course And Treatment O2 Sat by Pulse Oximetry: 100 Medical Decision Making Medical Decision Making: Impression: 47 year old female with foreign body (cotton from Q-tip) in left ear Progress: Small, white cotton foreign body visualized in left ear canal. Foreign body was removed by me with alligator forceps. TM is visualized and intact, with no signs of infection. Patient tolerated well with no complications. On re-evaluation, patient is resting comfortably, showing no signs of distress and reports improvement in her symptoms. Patient is stable for discharge. Disposition Counseled Patient/Family Regarding: Diagnosis, Need For Followup - Disposition Referrals: Pako Cornejo MD [Medical Doctor] - Disposition: HOME/ ROUTINE Disposition Time: 01:21 Condition: IMPROVED Additional Instructions: No more q-tips in ears please. Instructions: Removal of Foreign Body in Ear, Child Forms: [facility] (Indonesian), General Discharge Instructions - Clinical Impression Clinical Impression: Foreign body in ear - PA / ITALIAN TUTOR / Resident Statement MD/DO has reviewed & agrees with the documentation as recorded. - Scribe Statement The provider has reviewed the documentation as recorded by the Scribe (Hemalatha Walker) All medical record entries made by the Scribe were at my direction and personally dictated by me. I have reviewed the chart and agree that the record accurately reflects my personal performance of the history, physical exam, medical decision making, and the department course for this patient. I have also personally directed, reviewed, and agree with the discharge instructions and disposition. Procedures - FB Removal Ear Left Foreign Body Location: Ear Canal Left Foreign Body Suspected: Other (cotton from Q-tip ) TM Intact Pre-Procedure: Yes Foreign Body Removed: Yes Foreign Body Removal Technique: Forceps (alligator ) TM Intact Post Procedure: Yes Patient Tolorated Procedure: Well, No Complications Complications: None
[2017-09-06 01:30] VITALS: BP 132/75; PULSE 67; RESP 12
== END 2017-09-06 01:28 | disposition home or self-care (01) ==
LOC: C.ER 00:29
DX: T16.2XXA Foreign body in left ear, initial encounter (principal); X58.XXXA Exposure to other specified factors, initial encounter

== ENCOUNTER 2017-11-13 09:56 | Emergency (ER) | payer OTHER ==
[2017-11-13 09:57] VITALS: BMI 24.0
[2017-11-13 10:02] VITALS: PULSE 68; RESP 18; O2SAT 100
[2017-11-13] MEDS ORDERED: Sodium Chloride 0.9% 1,000 ML IV ONE (10:17)
[2017-11-13] MEDS ORDERED: Alum-Mag Hydrox-Simethicone Susp (30 mL) PO STA (10:20)
--- NOTE | 2017-11-13 10:41 | C.PDOC ---
History Of Present Illness 47-year-old female, presents to the emergency department with complaints of abdominal pain that started this morning. Patient had a cheeseburger last night, and woke up this morning with nausea, non-bloody/non-bilious vomiting and ep igastric pain. Patient has a Hx of Colon CA and Colostomy. She denies any fever. No other complaints at this time. Time Seen by Provider: 11/13/17 10:01 Chief Complaint (Nursing): Abdominal Pain History Per: Patient History/Exam Limitations: no limitations Past Medical History Reviewed: Historical Data, Nursing Documentation, Vital Signs Vital Signs: Last Vital Signs Temp 97.5 F L 11/13/17 09:59 Pulse 68 11/13/17 09:59 Resp 18 11/13/17 09:59 BP 157/99 H 11/13/17 09:59 Pulse Ox 100 11/13/17 09:59 - Medical History PMH: Anemia, Anxiety, Asthma, Colonic Polyps, Depression, HTN, Hypercholesterolemia, Migraine Denies: Atrial Fibrillation, Bronchitis, Cardia Arrhythmia, CHF, COPD, Emphysema, Mitral Valve Prolapse, Peripheral Edema, Pneumonia, Pulmonary Embolism, Chronic Kidney Disease, Sleep Apnea Surgical History: Endoscopy - [facility] Procedures BYPASS SIGMOID COLON TO CUTANEOUS, OPEN APPROACH (01/15/15) EXCISION OF ASCENDING COLON, ENDO, DIAGN (01/31/17) EXCISION OF ESOPHAGUS, ENDO, DIAGN (01/31/17) EXCISION OF RECTUM, ENDO, DIAGN (11/23/14) EXCISION OF RECTUM, VIA NATURAL OR ARTIFICIAL OPENING (11/23/14) EXCISION OF SIGMOID COLON, OPEN APPROACH (01/15/15) EXCISION OF STOMACH, ENDO, DIAGN (01/31/17) RESECTION OF APPENDIX, OPEN APPROACH (01/15/15) RESECTION OF RECTUM, OPEN APPROACH (01/15/15) Family History: States: No Known Family Hx - Social History Hx Alcohol Use: No Hx Substance Use: No Review Of Systems Constitutional: Negative for: Fever Gastrointestinal: Positive for: Nausea, Vomiting, Abdominal Pain Physical Exam - Physical Exam Appears: Non-toxic, No Acute Distress Skin: Warm, Dry, No Rash Head: Atraumatic, Normacephalic Eye(s): bilateral: Normal Inspection Nose: Normal Oral Mucosa: Moist Lips: Normal Appearing Neck: Normal ROM Cardiovascular: Rhythm Regular, No Murmur Respiratory: Normal Breath Sounds, No Accessory Muscle Use Gastrointestinal/Abdominal: Soft, Tenderness (diffuse), No Guarding, No Rebound Extremity: Normal ROM, No Deformity, No Swelling Neurological/Psych: Oriented x3, Normal Speech ED Course And Treatment - Laboratory Results Result Diagrams: 11/13/17 11:07 11/13/17 11:57 Lab Interpretation: Normal ECG: Interpreted By Me ECG Rhythm: Sinus Rhythm ECG Interpretation: Normal Rate From EC O2 Sat by Pulse Oximetry: 100 Pulse Ox Interpretation: Normal (RA) - Other Rad No standard instances X-Ray: Interpreted by Me Interpretation: OBS series: no OBS Progress Note: Treated with IVF NSS and zofran. On re-evaluation abdomen soft non-tender in no distress. tolerating PO Reassessment Condition: Improved Medical Decision Making Medical Decision Making: Plan: * Bloodwork * Maalox, Pepcid, IVFs, Zofran * UA * Reassess and Disposition Disposition Counseled Patient/Family Regarding: Studies Performed, Diagnosis, Need For Followup - Disposition Referrals: Pako Cornejo MD [Medical Doctor] - Disposition: HOME/ ROUTINE Disposition Time: 13:00 Condition: STABLE Additional Instructions: follow up with PMD for further evaluation Prescriptions: Ondansetron ODT [Zofran ODT] 1 odt PO BID PRN #6 odt PRN Reason: Nausea/Vomiting Forms: [facility] (Italian) - POA Present On Arrival: None - Clinical Impression Clinical Impression: Vomiting, Nausea - Scribe Statement The provider has reviewed the documentation as recorded by the Scribe (Tasha Lucia) All medical record entries made by the Scribe were at my direction and p ersonally dictated by me. I have reviewed the chart and agree that the record accurately reflects my personal performance of the history, physical exam, medical decision making, and the department course for this patient. I have also personally directed, reviewed, and agree with the discharge instructions and disposition.
[2017-11-13] MEDS ORDERED: Sodium Chloride 0.9% 1,000 ML ONE (11:05)
[2017-11-13] MEDS ORDERED: Alum-Mag Hydrox-Simethicone Susp (30 mL) ONE (11:05)
[2017-11-13 11:12] LABS: BASO % 0.4 % (0.0-2.0); EOS % 0.1 % (0.0-4.0); LYMPH # 0.6 K/uL (1.0-4.3); LYMPH % 8.7 % (20.0-40.0); MEAN CORPUSCULAR HEMOGLOBIN 30.1 pg (27.0-31.0); MEAN PLATELET VOLUME 10.5 fL (7.2-11.7); MONO # 0.1 K/uL (0.0-0.8); MONO % 1.1 % (0.0-10.0); NEUT # 6.5 K/uL (1.8-7.0); NEUT % 89.7 % (50.0-75.0); NRBC % 0.1 % (0.0-2.0); PLATELET COUNT 167 K/uL (130-400); RBC 5.35 Mil/uL (3.80-5.20); RED CELL DISTRIBUTION WIDTH 14.5 % (11.5-14.5); WHITE BLOOD COUNT 7.2 K/uL (4.8-10.8)
[2017-11-13 11:14] LABS: HEMOGLOBIN 16.1 g/dL (11.0-16.0); MEAN CELL VOLUME 88.5 fL (81.0-99.0)
[2017-11-13 11:55] LABS: LYMPHOCYTE 9 % (20-40); NEUTROPHIL 91 % (50-75); TOTAL CELLS COUNTED 100
[2017-11-13 11:56] LABS: PLATELET ESTIMATE NORMAL (NORMAL)
[2017-11-13 12:16] LABS: ALB/GLOB RATIO 1.1 (1.0-2.1); ALBUMIN 4.3 g/dL (3.5-5.0); ALT/SGPT 16 U/L (9-52); AST/SGOT 23 U/L (14-36); BLOOD UREA NITROGEN 12 mg/dL (7-17); CALCIUM 9.2 mg/dl (8.6-10.4); GFR NON-AFRICAN AMERICAN > 60; LIPASE 152 U/L (23-300)
--- NOTE | 2017-11-13 12:17 | RAD ---
Date of service: 11/13/2017 PROCEDURE: Radiographs of the chest and abdomen (obstructive series) HISTORY: Abd Pain COMPARISON: No prior. TECHNIQUE: AP radiograph of the chest, with upright and supine radiographs of the abdomen. FINDINGS: CHEST: Lungs: Clear. Cardiovascular: Normal size heart. No pulmonary vascular congestion. Pleura: No pleural fluid. No pneumothorax. Other findings: None. ABDOMEN AND PELVIS: Bowel: Unremarkable bowel gas pattern. No evidence of mechanical obstruction. Free air: None. Bones: Unremarkable. Other findings: None. IMPRESSION: Unremarkable radiographs of chest and abdomen. No evidence of mechanical bowel obstruction.
[2017-11-13 12:27] LABS: CK-MB 0.26 ng/mL (0.0-3.38)
[2017-11-13 12:33] LABS: SQUAMOUS EPITHIAL 1 /hpf (0-5); URINE BACTERIA RARE (<OCC); URINE BILIRUBIN NEGATIVE (NEGATIVE); URINE BLOOD 1+ (NEGATIVE); URINE CLARITY Hazy (Clear); URINE COLOR Amber (YELLOW); URINE GLUCOSE (UA) NORMAL (Normal); URINE LEUKOCYTE ESTERASE NEG Leu/uL (Negative); URINE PROTEIN NEGATIVE (NEGATIVE)
[2017-11-13 13:02] VITALS: BP 140/98; TEMP 98.3
--- NOTE | 2017-11-16 10:10 | CARD ---
APPROVED REPORT Date of service: 11/13/2017 EKG Measurement Heart [id number] <Conclusion> Normal sinus rhythm Normal ECG
== END 2017-11-13 13:14 | disposition home or self-care (01) ==
LOC: C.ER 09:56
DX: R11.2 Nausea with vomiting, unspecified (principal)
CPT/HCPCS: 74022; 80053; 81001; 82553; 83690; 84484; 85025; 93005; 96361; 96374; 96375; 99283; J2405; J7030

== ENCOUNTER 2018-02-05 09:05 | Emergency (ER) | payer OTHER ==
[2018-02-05 09:06] VITALS: BMI 24.0
[2018-02-05 10:56] LABS: BASO % 0.2 % (0.0-2.0); EOS % 0.2 % (0.0-4.0); HEMOGLOBIN 14.7 g/dL (11.0-16.0); LYMPH # 0.5 K/uL (1.0-4.3); LYMPH % 5.1 % (20.0-40.0); MEAN CELL VOLUME 90.2 fL (81.0-99.0); MEAN CORPUSCULAR HEMOGLOBIN 29.7 pg (27.0-31.0); MEAN CORPUSCULAR HGB CONC 32.9 g/dL (33.0-37.0); MEAN PLATELET VOLUME 11.6 fL (7.2-11.7); MONO # 0.4 K/uL (0.0-0.8); MONO % 3.7 % (0.0-10.0); NEUT % 90.8 % (50.0-75.0); NRBC % 0.1 % (0.0-2.0); PLATELET COUNT 151 K/uL (130-400); RBC 4.96 Mil/uL (3.80-5.20); RED CELL DISTRIBUTION WIDTH 13.8 % (11.5-14.5); WHITE BLOOD COUNT 9.9 K/uL (4.8-10.8)
--- NOTE | 2018-02-05 11:04 | C.PDOC ---
History Of Present Illness 47 y/o F c PMHx asthma, colon cancer s/p colostomy bag p/w dyspnea since this morning, states feels similar to previous asthma exacerbations associated with midsternal chest tightness. Denies fever, chills, leg swelling. Patient also reports nausea and vomiting intermittently for a very long time, states feels bloated often, similar visit recently to this ED. Time Seen by Provider: 02/05/18 10:56 Chief Complaint (Nursing): Chest Pain Past Medical History Vital Signs: Last Vital Signs Temp 98.1 F 02/05/18 09:17 Pulse 88 02/05/18 10:49 Resp 22 02/05/18 10:49 BP 161/95 H 02/05/18 10:49 Pulse Ox 100 02/05/18 10:49 - Medical History PMH: Anemia, Anxiety, Asthma, Colonic Polyps, Depression, HTN, Hypercholesterolemia, Migraine Denies: Atrial Fibrillation, Bronchitis, Cardia Arrhythmia, CHF, COPD, Emphysema, Mitral Valve Prolapse, Peripheral Edema, Pneumonia, Pulmonary Embolism, Chronic Kidney Disease, Sleep Apnea Surgical History: Endoscopy - [facility] Procedures BYPASS SIGMOID COLON TO CUTANEOUS, OPEN APPROACH (01/15/15) EXCISION OF ASCENDING COLON, ENDO, DIAGN (01/31/17) EXCISION OF ESOPHAGUS, ENDO, DIAGN (01/31/17) EXCISION OF RECTUM, ENDO, DIAGN (11/23/14) EXCISION OF RECTUM, VIA NATURAL OR ARTIFICIAL OPENING (11/23/14) EXCISION OF SIGMOID COLON, OPEN APPROACH (01/15/15) EXCISION OF STOMACH, ENDO, DIAGN (01/31/17) RESECTION OF APPENDIX, OPEN APPROACH (01/15/15) RESECTION OF RECTUM, OPEN APPROACH (01/15/15) Family History: States: Unknown Family Hx - Social History Hx Alcohol Use: No Hx Substance Use: No - Immunization History Hx Tetanus Toxoid Vaccination: No Hx Influenza Vaccination: No Hx Pneumococcal Vaccination: No Review Of Systems Except As Marked, All Systems Reviewed And Found Negative. Constitutional: Negative for: Fever Gastrointestinal: Negative for: Abdominal Pain Physical Exam - Physical Exam Additional Physical Exam Comments: Constitutional: No acute distress. Head: Normocephalic. Atraumatic. Eyes: PERRL. ENT: Moist mucous membranes. Neck: Supple. Cardiovascular: Regular rate. Radial pulse 2+ bilaterally. Chest: Reproducible tenderness. Respiratory: Clear to auscultation bilaterally. GI: Soft. Epigastric tenderness Nondistended.No Guarding. No Rebound L sided colostomy with healthy-appearing tissue at site. Back: No CVA tenderness. Musculoskeletal: No tenderness or swelling of extremities.z Skin: No rash. Neurologic: Alert, no focal deficit. ED Course And Treatment - Laboratory Results Result Diagrams: 02/05/18 10:45 02/05/18 10:45 O2 Sat by Pulse Oximetry: 100 (RA) - Radiology CXR: Interpreted by Me, Viewed By Me CXR Interpretation: Yes: No Acute Disease Medical Decision Making Medical Decision Making: Shana ordered by nurse prior to my evaluation. CXR Results HISTORY: dyspnea COMPARISON: Chest x-ray performed 08/18/17 TECHNIQUE: Chest, one view. FINDINGS: LUNGS: No focal consolidation. Please note that chest x-ray has limited sensitivity for the detection of pulmonary masses. PLEURA: No significant pleural effusion identified. No definite pneumothorax . CARDIOVASCULAR: Heart size appears within normal limits. No significant atherosclerotic calcification present. OSSEOUS STRUCTURES: No acute osseous abnormality identified. VISUALIZED UPPER ABDOMEN: Unremarkable. OTHER FINDINGS: None. IMPRESSION: No focal consolidation. Patient states she feels well at reassessment and would like to go home. Will discharge, f/u PMD, instructed to return to ED for worsening breathing, pain, fever, vomiting, or any other problem. Disposition - Disposition Referrals: Pako Cornejo MD [Medical Doctor] - Disposition: HOME/ ROUTINE Disposition Time: 12:28 Condition: STABLE Prescriptions: Prednisone [Deltasone] 3 tab PO DAILY #12 tablet Instructions: Asthma in Adults Forms: [facility] (Armenian) - Clinical Impression Clinical Impression: Dyspnea
[2018-02-05] MEDS: Sodium Chloride 0.9% 1,000 ML IV STA (11:05)
[2018-02-05] MEDS: Alum-Mag Hydrox-Simethicone Susp (30 mL) PO STA (11:05)
[2018-02-05 11:09] LABS: ALB/GLOB RATIO 1.1 (1.0-2.1); ALBUMIN 4.3 g/dL (3.5-5.0); BLOOD UREA NITROGEN 10 mg/dL (7-17); CALCIUM 8.7 mg/dl (8.6-10.4); GFR NON-AFRICAN AMERICAN > 60; SQUAMOUS EPITHIAL 2 /hpf (0-5); URINE BACTERIA OCC (<OCC); URINE BILIRUBIN NEGATIVE (NEGATIVE); URINE BLOOD NEGATIVE (NEGATIVE); URINE CLARITY Clear (Clear); URINE COLOR Yellow (YELLOW); URINE GLUCOSE (UA) NORMAL (Normal); URINE LEUKOCYTE ESTERASE NEG Leu/uL (Negative); URINE PROTEIN NEGATIVE (NEGATIVE); URINE UROBILINOGEN NORMAL mg/dL (0.2-1.0)
[2018-02-05] MEDS: MethylPREDNISolone 40 mg Vial IVP STA (11:10)
[2018-02-05 11:13] LABS: ALT/SGPT 88 U/L (9-52); AST/SGOT 283 U/L (14-36)
--- NOTE | 2018-02-05 11:14 | RAD ---
HISTORY: dyspnea COMPARISON: Chest x-ray performed 08/18/17 TECHNIQUE: Chest, one view. FINDINGS: LUNGS: No focal consolidation. Please note that chest x-ray has limited sensitivity for the detection of pulmonary masses. PLEURA: No significant pleural effusion identified. No definite pneumothorax . CARDIOVASCULAR: Heart size appears within normal limits. No significant atherosclerotic calcification present. OSSEOUS STRUCTURES: No acute osseous abnormality identified. VISUALIZED UPPER ABDOMEN: Unremarkable. OTHER FINDINGS: None. IMPRESSION: No focal consolidation.
[2018-02-05] MEDS ORDERED: Albuterol-Ipratrop 3 mg / 0.5 (3 ml) UD ONE (11:17)
[2018-02-05] MEDS ORDERED: Aluminum Hydroxide/Magnesium Hydroxide Susp (30 mL) ONE (11:17)
[2018-02-05 11:22] LABS: CK-MB < 0.22 ng/mL (0.0-3.38)
[2018-02-05] MEDS ORDERED: Alum-Mag Hydrox-Simethicone Susp (30 mL) ONE (11:29)
[2018-02-05] MEDS: Albuterol-Ipratrop 3 mg / 0.5 (3 ml) UD IH STA (11:49)
[2018-02-05 11:59] LABS: LYMPHOCYTE 9 % (20-40); MONOCYTE 2 % (0-10); NEUTROPHIL 89 % (50-75); PLATELET ESTIMATE NORMAL (NORMAL); TOTAL CELLS COUNTED 100
[2018-02-05 12:14] VITALS: BP 157/89; PULSE 91; RESP 18; TEMP 98.9
[2018-02-05 12:30] VITALS: O2SAT 100
--- NOTE | 2018-02-08 09:36 | CARD ---
APPROVED REPORT Date of service: 02/05/2018 EKG Measurement Heart [id number] <Conclusion> Normal sinus rhythm Possible Left atrial enlargement Borderline ECG
== END 2018-02-05 13:12 | disposition home or self-care (01) ==
LOC: C.ER 09:05
DX: R06.00 Dyspnea, unspecified (principal)
CPT/HCPCS: 36415; 71045; 80053; 81001; 82553; 84484; 85025; 93005; 94640; 96361; 96374; 96375; 99285; J2405; J2920; J7030

== ENCOUNTER 2018-04-15 06:40 | Day surgery (SDC) | payer OTHER ==
[2018-04-15 07:18] VITALS: TEMP 97.3; O2SAT 100
[2018-04-15] MEDS ORDERED: Propofol 10 mg/ml Inj (20 ML) ONE (07:37)
[2018-04-15] MEDS ORDERED: Lidocaine Hydrochloride 5 ML INJ ONE (07:37)
[2018-04-15] MEDS ORDERED: Lactated Ringer's 500 ML IV ONE ×2 (07:49)
[2018-04-15 07:58] VITALS: PULSE 78; RESP 12
--- NOTE | 2018-04-15 07:59 | CP.SDSHP ---
Same Day Surgery H & P - History Proposed Procedure: COLONSCOPY Pre-Op Diagnosis: SEE NOTES - Previous Medical/Surgical History Cardiac: Hypertension Pulmonary: Asthma Neuro: Backaches, Other Misc: Other Pain: 4.Moderate Pain Previous Surgical History: PARTIAL COLON RESECTION - Allergies Allergies: Allergies No Known Allergies Allergy (Verified 04/15/18 07:02) - Physical Exam General Appearance: N Vital Signs: Vital Signs 04/15/18 07:08 Temperature 97.3 F L Pulse Rate 66 Respiratory 19 Rate Blood Pressure 151/89 H O2 Sat by Pulse 100 Oximetry Mental Status: Alert & Oriented x3 Neuro: Other Heart: Other Lungs: Other GI: Other - {Optional Preform as Required} Breast: WNL Abdomen: Other Rectal: Other Integument: WNL : WNL Ortho: Other ENT: WNL - Impression Pt. Evaluated Today:Candidate for Anesthesia & Procedure: Yes - Date & Time Time: 08:02 Short Stay Discharge - Short Stay Discharge Admitting Diagnosis/Reason for Visit: MALIGNANT NEOPLASM OF COLON, UNSPECIFIED Disposition: HOME/ ROUTINE
[2018-04-15] MEDS ORDERED: Belladonna-Phenobarbital PO ONE (09:00)
[2018-04-15 09:06] VITALS: BP 136/67
== END 2018-04-15 09:59 | disposition home or self-care (01) ==
LOC: C.ENDO 06:40
PROVIDERS: ATTEND Specialist
DX: Z08 Encounter for follow-up examination after completed treatment for malignant neoplasm (principal); Z85.038 Personal history of other malignant neoplasm of large intestine; K52.9 Noninfective gastroenteritis and colitis, unspecified; I10 Essential (primary) hypertension; J45.909 Unspecified asthma, uncomplicated
CPT/HCPCS: 44389; 88305; J2704; J7120

== ENCOUNTER 2018-05-18 10:12 | Outpatient (CLI) | payer OTHER | END 2018-05-18 10:13 | disposition home or self-care (01) | LOC: C.MAMMO 10:12 | DX: Z12.31 Encounter for screening mammogram for malignant neoplasm of breast (principal) ==

== ENCOUNTER 2018-06-10 10:14 | Outpatient (CLI) | payer OTHER | END 2018-06-10 10:15 | disposition home or self-care (01) | LOC: C.MAMMO 10:14 | DX: R92.8 Other abnormal and inconclusive findings on diagnostic imaging of breast (principal) ==